=== PATIENT | female | born 1930 | race Caucasian/White ===

== ENCOUNTER 2016-06-06 06:45 | Inpatient (IN) | payer MEDICARE ==
[~2016-06-06] VITALS: Ht 149.9 cm; Wt 96.7 kg
[2016-06-06] VITALS (31 sets, daily range): BP systolic 86–143; BP diastolic 44–113; PULSE 83–118; RESP 12–31; O2SAT 92–100
[~2016-06-06 06:45] MED LIST: AMLO10TA3 PO; ASPI325T32 PO; ATOR40TA69 PO; ESTR42.52 VG; FLUT16SP NS; FURO-128 PO; METO-272 PO; NITR0.4T6 SL; OMEP20TA86 PO; VIT1CAPS8 PO; imdur PO
[2016-06-06 07:06] LABS: BASOPHILS % (AUTO) 0.7 % (0-3); EOSINOPHILS % (AUTO) 5.3 % (0-5); MONOCYTES % (AUTO) 9.8 % (4-12); Mean Corpuscular Hemoglobin 29.7 pg (27.0-35.0); Mean Corpuscular Volume 86.5 fL (81-100); NEUTROPHILS % (AUTO) 44.6 % (40-74); Platelet Count 235 bil/L (150-400)
--- NOTE | 2016-06-06 07:21 | ED.REPORT ---
HPI-Chest Pain 40 and Over Date of Service Jun 06, 2016 ED Provider: Teri Bowman MD Patient is an 85-year-old female with a history of HTN, atrial fibrillation, and GERD who reports to the ED due to chest pain onset 3 hours ago. Patient states that, "chest pain woke me up this morning, it's never been this bad or lasted this long." Patient rated pain at a 10/10 at its most severe and currently at 4/10. She c/o associated SOB and has never had a heart attack before. Patient has had a virus for a few days and c/o associated non- productive cough. She was seen by Urgent Care 3 days ago for a virus where she was put on azithromycin. Patient has had a history of chest pain for the past year and is currently being seen by photogrammetrist Dr. Meraz. Nursing Notes Stated Complaint: CHEST PAIN Chief Complaint: Chest Pain Nursing Notes Reviewed: Yes Allergies: Coded Allergies: levofloxacin (Verified Allergy, Unknown, 09/15/15) CAN NOT REMEMBER RESPONSE Scheduled Amlodipine (Amlodipine) 10 Mg Tablet 10 MG PO DAILY Ascorbic Acid (Vitamin C) 250 Mg Tab.chew 250 MG PO DAILY Aspirin (Aspirin) 325 Mg Tablet 325 MG PO DAILY Atorvastatin Calcium (Atorvastatin Calcium) 40 Mg Tablet 40 MG PO HS at bedtime Estradiol (Estrace) 42.5 Gm Cream.appl 1 APPLIC VG 2 times a week Furosemide (Furosemide) 20 Mg Tab 20 MG PO DAILY Isosorbide MN ER (Isosorbide MN ER) 60 Mg Tab.er.24h 60 MG PO DAILY Metoprolol Tartrate (Metoprolol Tartrate) 50 Mg Tablet 50 MG PO BID Multivitamin (Once Daily) 1 Each Tablet 1 EACH PO DAILY Omeprazole (Omeprazole) 20 Mg Tablet.dr 20 MG PO DAILY Vit C/Vit E/Lutein/Min/[place]-3 (Ocuvite Softgel) 1 Each Capsule 1 EACH PO DAILY Scheduled PRN Albuterol HFA (Proair HFA) 8.5 Gm Hfa.aer.ad 2 PUFFS INHALATION Q4H PRN PRN For Shortness of Breath Fluticasone Propionate (Fluticasone Propionate Nasal) 16 Gm [place].susp 2 SPRAY NS DAILY PRN PRN congestion Nitroglycerin SL (Nitroglycerin SL) 0.4 Mg Tab.subl 0.4 MG SL PRN PRN PRN For Chest Pain General Time Seen by MD: 07:19 Chief Complaint Chest pain Hx Obtained From: Patient Arrived By: Ambulance Sudden in Onset?: Yes Onset Occurred: 1 - 4 hours ago Context of Onset: Sleeping Symptom Duration: Since onset Severity: Current: Pain level 4 out of 10 Severity: Maximum: Pain level 10 out of 10 Recent Healthcare: Recent doctor visit Similar Sx Previous: Yes Past Medical History Past Medical History Notes: Echocardiogram November 2015- ejection fraction at 60-65%, no focal wall motion abnormalities Past Medical History Lumbar spondylosis and spinal stenosis Atrial fibrillation on ASA Hypertension Colon CA GERD History of abnormal Lexiscan sestamibi B that was initially suspicious for prior ND, however subsequent echocardiogram showed normal EF and no wall motion abnormalities, there is no findings of underlying heart disease (abnormal stress test 12/18/2013) Reports: Hyperlipidemia Past Surgical History Back surgery Cholecystectomy Knee arthroscopy Reports: Cataract surgery Family History Noncontributory Smoking History Never Smoker Social History Alcohol Use: Denies alcohol use Drug Use: Denies drug use Other Social History: Lives with children, Local resident Ambulatory Status Independent Review of Systems Constitutional: Denies: Fever Respiratory: Reports: Non-productive cough, Shortness of breath Cardiovascular: Reports: Chest pain Complete sys rev & neg: except as marked. Physical Exam Initial Vital Signs Vital Signs (First) Date Time Temp Pulse Resp B/P Pulse Ox O2 Delivery O2 Flow Rate FiO2 06/06/16 06:54 36.3 112 28 141/65 97 Room Air 06/06/16 07:39 2 Initial VS: Reviewed Head / Eyes: Atraumatic, Normocephalic, PERRL ENT: Mucous membranes moist, Conjunctiva normal, No scleral icterus Neck: Supple, Non-tender, Full range of motion Psychiatric: Mood/affect normal, Behavior normal, Normal thought content General/Constitutional: Awake, Alert, Cooperative Appearance / Presentation: Positive: Pale diaphoretic but speaking in full sentences Respiratory / Chest: Atraumatic, Breath sounds NL, Breath sounds = bilat, No respiratory distress Heart Rate / Rhythm: Positive: Irregular rhythm, Tachycardia Abdomen: Atraumatic, Soft, Non-tender, No guarding, No rebound, BS normoactive Lower Extremity / Pelvis / MS: No edema Interpretation & Diagnostics Lab Results Interpretation Result Diagram: 06/06/16 0645 06/06/16 0645 Test 06/06/16 06:45 06/06/16 08:50 White Blood Count 8.7th/mm3 (3.8-10.1) Red Blood Count 4.38mil/mm3 (3.90-5.20) Hemoglobin 13.0g/dL (12.0-15.6) Hematocrit 37.9% (35.0-46.0) Mean Corpuscular Volume 86.5fL (81-100) Mean Corpuscular Hemoglobin 29.7pg (27.0-35.0) Mean Corpuscular Hemoglobin Concent 34.3% (32.0-37.0) Red Cell Distribution Width 12.7% (12.3-15.4) Platelet Count 235bil/L (150-400) Neutrophils (%) (Auto) 44.6% (40-74) Lymphocytes (%) (Auto) 39.4% (14-46) Monocytes (%) (Auto) 9.8% (4-12) Eosinophils (%) (Auto) 5.3% (0-5) Basophils (%) (Auto) 0.7% (0-3) Sodium Level 141mEq/L (134-144) Potassium Level 3.2mEq/L (3.5-5.2) Chloride Level 101mEq/L (97-108) Carbon Dioxide Level 24mmol/L (18-29) Blood Urea Nitrogen 20mg/dL (8-27) Creatinine 1.15mg/dL (0.57-1.00) Estimat Glomerular Filtration Rate 64mL/min (>59) Glucose Level 150mg/dL (60-99) Calcium Level 9.4mg/dL (8.5-10.1) Magnesium Level 1.8mg/dL (1.6-2.6) Total Bilirubin 0.8mg/dL (0.0-1.2) Aspartate Amino Transf (AST/SGOT) 15U/L (0-50) Alanine Aminotransferase (ALT/SGPT) 12U/L (0-32) Alkaline Phosphatase 82U/L (25-165) Total Protein 6.8g/dL (6.4-8.4) Albumin 3.9g/dL (3.4-5.0) Total Creatine Kinase 41U/L (21-215) Creatine Kinase MB 1.5ng/mL (0.0-5.3) Creatine Kinase MB % % (0.0-5.0) Troponin T < 0.010ug/L (0.0-0.011) Thyroid Stimulating Hormone (TSH) 0.926uIU/mL (0.450-4.500) ECG Interpretation ECG Interpretation: new compared to 09/2015 Time: 07:06 Interpreted by: ED physician Abnormal T wave or ST segment: ST depression - ant-lat (into AVL) Rhythm / Conduction: Atrial fib with RVR ECG Interpretation: similar to presentation no progression of ST depression Time: 07:43 Interpreted by: ED physician X-Ray Chest Interpretation Chest Xray Interpretation: IMPRESSION: 1. Persistent cardiomegaly. 2. Left basilar atelectasis versus aspiration or pneumonia. Dictated by: Jorge A Azul RRA Interpreted: Dheeraj Finch MD on 06/06/2016 at 9:25 Transcribed by: JIM on 06/06/2016 at 9:26 View: Portable Interpretation / Wet Read by: Interpret - Radiologist Re-Eval/Medical Decision Med Decision/Clinical Course Patient presents with acute onset 10 out of 10 left-sided chest pain radiating to the left arm with diaphoresis. Describes this is clearly different from her typical stomach pain and musculoskeletal pain. She notes that she has been coughing a bit recently however has not had fevers and current pain is not pleuritic in nature. EKG shows ST depression in multiple leads. Initial presumption was acute coronary syndrome she was given nitroglycerin and after 2 sprays and nitro paste placed a couple of doses of morphine she is completely pain-free at this point. She is on a heparin drip. He is currently nothing by mouth has not had anything since dinner last night. She does not describe exertional angina or equivalents over the past days. She was recently seen by Dr. Maldonado you has had a stress test about 4 years ago has had recent echocardiogram. He had recommended outpatient cardiac catheterization to help with risk stratification. At this point pain-free hemodynamically stable heart rate has slowed down and has received aspirin metoprolol nitroglycerin and nitroglycerin paste heparin drip. We will admit to hospitalist service. Dr. Rollins and he will consult asked for echocardiogram to be done and this is been ordered. We will anticipate cardiac catheterization later this afternoon or tomorrow. EKG ST depression changes laterally remain they are not worsening and initial troponin, one hour after onset of pain, and repeat troponin 2 hours after that are both negative Consultation #1: Referral / Consult Name: Gera Pritchard MD Consulted With: Cardiology Call Returned at: 10:51 Tubing Machine Tender: Agrees with eval, Agrees with plan Note: Dr. Pritchard recommends an echocardiogram that will help to determine whether or not patient gets a catheter today or tomorrow. Consultation #2: Referral / Consult Name: Camilo Parker MD Consulted With: Hospitalist Call Returned at: 13:10 Tubing Machine Tender: Agrees with eval, Agrees with plan, Accepts admit Note: Case discussed. Dr. Parker accepts admit. Counseled Regarding: Diagnosis, Lab results, Need for admission Discharge & Departure Primary Impression: Acute coronary syndrome Additional Impressions: Chest pain Chest pain type: unspecified Qualified Code: R07.9 - Chest pain, unspecified Hypokalemia Atrial fibrillation with RVR Disposition: ADMITTED TO HOSPITAL Discharge Condition All VS Reviewed: Yes Condition: Stable Referrals: Moncho Mcintosh MD (PCP) Crit Care Except Billable Proc Time Spent: 30-74 minutes Scribe Attestation Portion of this note were transcribed by Belen Mae. I, Dr. Bowman, personally performed the history, physical exam, and medical decision-making: I reviewed and confirmed the accuracy for the information in the transcribed note. Signed by: ilda Wan, 06/06/16 1500 copies to: Gera Pritchard MD, Shawna L MD Jun 06, 2016 07:21 BELEN MAE Jun 06, 2016 07:39
[2016-06-06] MEDS ORDERED: Heparin 5,000 Unit/mL Inj IVPUSH ONE (07:25)
[2016-06-06] MEDS ORDERED: Nitroglycerin 2% 1 Gm Ointment TOPICAL ONE (07:25)
[2016-06-06] MEDS ORDERED: Heparin 25,000 Unit/500 mL 0.45% NS Premix IV ONE (07:25)
[2016-06-06] MEDS ORDERED: Heparin 25K Unit/500mL 0.45 NS 25,000 UNIT in IV Premix 1 EACH IV ONE (07:25)
[2016-06-06] MEDS ORDERED: Nitroglycerin 50,000 mcg/250 mL D5W Premix IV ONE ×2 (07:25)
[2016-06-06 07:44] LABS: Magnesium 1.8 mg/dL (1.6-2.6)
[2016-06-06 07:49] LABS: TROPONIN T < 0.010 ug/L (0.0-0.011)
[2016-06-06] MEDS: MeTOProlol 1 mg/mL 5 mL Inj IVPUSH PRN ×3 (08:05→08:30)
--- NOTE | 2016-06-06 09:26 | DRSVH ---
PROCEDURE: X-RAY CHEST ONE VIEW, PORTABLE ([id number]) INDICATIONS: CHEST PAIN; COUGH; CONGESTION TECHNIQUE: One view of the chest was acquired. COMPARISON: [facility], CR, XR CHEST 2VW, 10/23/2015, 10:52. [facility], CR , CHEST 1VW (PORTABLE), 01/22/2014, 2:29. FINDINGS: Surgical changes and devices: None. Lungs and pleura: No pleural effusions or pneumothorax. Air space opacity involves the left lung ba se, otherwise lungs are clear. Mediastinum: Mediastinal contours appear normal. Heart is mildly enlarged. Bones and chest wall: No suspicious bony lesions. Overlying soft tissues appear unremarkable. IMPRESSION: 1. Mild cardiomegaly. 2. Left basilar atelectasis versus aspiration or pneumonia. Dictated by: Jorge A REHMANA Interpreted: Dheeraj Finch MD on 06/06/2016 at 9:25 Transcribed by: JIM on 06/06/2016 at 9:26 Approved by: Dheeraj Finch M.D. on 06/06/2016 at 9:58
[2016-06-06] MEDS ORDERED: KCl 40 mEq/D5W 500 mL 40 MEQ in IV Premix 1 EACH IV ONE (09:35)
[2016-06-06] MEDS ORDERED: Alum-Mag Hydrox-Simeth 30 mL Suspension PO ONE (10:55)
[2016-06-06] MEDS ORDERED: 0.9% Sodium Chloride 1,000 ML IV ONE (13:37)
[2016-06-06] MEDS ORDERED: MULT-666 PO (14:23)
[2016-06-06] MEDS ORDERED: ALBU8.5H2 INHALATION (14:23)
[2016-06-06] MEDS ORDERED: FUR20 PO (14:23)
[2016-06-06] MEDS ORDERED: ASCO250T7 PO (14:23)
[2016-06-06] MEDS ORDERED: METO50TA3 PO (14:23)
[2016-06-06] MEDS ORDERED: ISOS60TA2 PO (14:23)
[2016-06-06] MEDS ORDERED: Heparin 5,000 Units/500 mL NS Premix IV ONE (14:26)
[2016-06-06] MEDS ORDERED: Heparin 1,000 Units/500 mL NS Premix IV ONE (14:26)
[2016-06-06] MEDS ORDERED: 0.9% Sodium Chloride 1,000 ML IV SCH (14:32)
[2016-06-06] MEDS ORDERED: Polyethylene Glycol (PEG) 17 Gm Powder PO PRN (14:35)
[2016-06-06] MEDS ORDERED: Ondansetron 2 mg/mL 2 mL Inj IVPUSH PRN ×2 (14:35→16:50)
[2016-06-06] MEDS ORDERED: Senna-Docusate 8.6-50 mg Tablet PO PRN (14:35)
[2016-06-06] MEDS ORDERED: Heparin 1,000 Unit/mL 10 mL Inj ONE (14:46)
[2016-06-06] MEDS ORDERED: 0.9% Sodium Chloride 1,000 ML ONE (14:46)
[2016-06-06 15:05] LABS: Creatine Kinase 41 U/L (21-215)
[2016-06-06] MEDS ORDERED: fentaNYL-PF 50 mCg/mL 2 mL Inj ONE (15:06)
--- NOTE | 2016-06-06 15:12 | PCM.CHPCAR ---
Consult Subjective Date of service Jun 06, 2016 Date of admit Jun 06, 2016 at 13:22 Provider Requesting Consult Requesting Provider: Teri Bowman MD Primary Care Physician Primary Care Provider: Moncho Mcintosh MD Chief Complaint Chest pain and shortness of breath History of Present Illness This is a 85-year-old female with supposedly coronary artery disease diagnosed by abnormal myocardial perfusion study back in December 2013. The patient was recently seen on May 17 my clinic because of her chronic symptoms such as belching or burping with sometimes can cause her to have chest pain. She has had this for several years but as of lately she did not make complain of chest discomfort on exertion when she saw me back on May 17. Because of her previous abnormal myocardial perfusion study showed a distal LAD territory finding consistent with prior myocardial infarction, I ordered a repeat Lexiscan sestamibi to reevaluate for any significant ischemia. Apparently the patient's symptoms continued to progress and she apparently caught an upper respiratory infection last week. She developed some shortness of breath as well and went to their care clinic this past Monday was prescribed antibiotics since her symptoms were not resolving. Patient states that she has difficulty breathing at night and has been in a recliner for some time now. Patient apparently had significant chest pain early this morning hours and presented herself to the emergency room. Her chest discomfort described as chest pressure going across her chest with radiation to her back and down her left arm. When she presented to the emergency room she was found to be in atrial for ablation with a rapid ventricular response. She has some ST depressions in multiple leads. The patient was initially given nitroglycerin sublingual which did not relieve her chest discomfort. She was eventually given IV morphine which did eventually mary her symptoms. The patient has been asymptomatic since 9:00 this morning. Her rhythm is still in atrial fibrillation. Her troponins 2 have been negative and a stat echo was ordered which showed no evidence of significant LV wall motion abnormalities which is consistent with her prior echocardiogram. Her LV ejection fraction is normal. She states that her chest discomfort this morning was not associated with belching which normally it has been over the past 3 years. Her chest x-ray during this admission shows possible atelectasis. She denies any recent fevers chills, no elevated white count, or productive sputum. Review of Systems Review of Systems CONSTITUTIONAL: Negative for fever, weight loss or weight gain. HEENT: Eyes: Negative for glaucoma or cataracts. Ears: Positive for loss of hearing. Nose: Negative for nasal congestion. Negative for rhinorrhea or postnasal drip. Mouth: Negative for false teeth. Throat: Negative for masses or hoarseness. Negative for snoring. CARDIOVASCULAR: Positive for chest pain negative for palpitations, near syncope , syncope, but possible orthopnea and PND. RESPIRATORY: Positive for shortness of breath, but negative for hemoptysis, COPD , cough. GASTROINTESTINAL: Negative for nausea, vomiting, diarrhea or heartburn. GENITOURINARY: Negative for dysuria. MUSCULOSKELETAL: Negative for osteoarthritis. SKIN: Negative for rashes. NEUROLOGIC: Negative for headaches, blurry vision, CVA, mental status changes. PSYCHIATRIC: Negative for depression. Negative for daytime sleepiness or insomnia. ENDOCRINE: Negative for diabetes or thyroid abnormalities. HEMATOLOGIC: Negative for anemia or blood dyscrasias. PMH Past Medical History Benign neoplasm of colon Idiopathic peripheral neuropathy Esophageal reflux Hypertension Impaired fasting glucose Osteoporosis Prior abnormal myocardial perfusion study showed apical perfusion defect Arthropathy involving multiple sites Paroxysmal nature for ablation on aspirin Sciatica right side Possible CAD based on myocardial perfusion study Scheduled Amlodipine (Amlodipine) 10 Mg Tablet 10 MG PO DAILY (Reported) Ascorbic Acid (Vitamin C) 250 Mg Tab.chew 250 MG PO DAILY (Reported) Aspirin (Aspirin) 325 Mg Tablet 325 MG PO DAILY (Reported) Atorvastatin Calcium (Atorvastatin Calcium) 40 Mg Tablet 40 MG PO HS (Reported) at bedtime Estradiol (Estrace) 42.5 Gm Cream.appl 1 APPLIC VG 2 times a week (Reported) Furosemide (Furosemide) 20 Mg Tab 20 MG PO DAILY (Reported) Isosorbide MN ER (Isosorbide MN ER) 60 Mg Tab.er.24h 60 MG PO DAILY (Reported) Metoprolol Tartrate (Metoprolol Tartrate) 50 Mg Tablet 50 MG PO BID (Reported) Multivitamin (Once Daily) 1 Each Tablet 1 EACH PO DAILY (Reported) Omeprazole (Omeprazole) 20 Mg Tablet.dr 20 MG PO DAILY (Reported) Vit C/Vit E/Lutein/Min/[place]-3 (Ocuvite Softgel) 1 Each Capsule 1 EACH PO DAILY (Reported) Scheduled PRN Albuterol HFA (Proair HFA) 8.5 Gm Hfa.aer.ad 2 PUFFS INHALATION Q4H PRN PRN For Shortness of Breath (Reported) Fluticasone Propionate (Fluticasone Propionate Nasal) 16 Gm [place].susp 2 SPRAY NS DAILY PRN PRN congestion (Reported) Nitroglycerin SL (Nitroglycerin SL) 0.4 Mg Tab.subl 0.4 MG SL PRN PRN PRN For Chest Pain (Reported) Discontinued Medications ([imdur]) 60 MG PO DAILY (Reported) Furosemide (Lasix) 40 Mg Tablet 40 MG PO DAILY Metoprolol Succinate ER (Metoprolol Succinate ER) 50 Mg Tab.er.24h 80 MG PO BID (Reported) Current Inpatient Medications Current Medications Nitroglycerin 0.4 mg Q5MIN PRN SL Last administered on 06/06/16 09:20; Admin Dose 0.4 MG; Start 06/06/16 at 07:25; Stop 06/06/16 at 09:20; Status DC Metoprolol Tartrate 5 mg Q5MIN PRN IVPUSH Last administered on 06/06/16 08:30 ; Admin Dose 5 MG; Start 06/06/16 at 07:25; Stop 06/06/16 at 08:30; Status DC Morphine Sulfate UP TO 10 mg IV in a 4 h... Q15MIN PRN IVPUSH Last administered on 06/06/16 08:35; Admin Dose 2 MG; Start 06/06/16 at 07:25; Stop 06/07/16 at 07:26 Lorazepam 1 mg ONCE PRN IVPUSH; Start 06/06/16 at 13:40; Stop 06/07/16 at 13:41 Nitroglycerin 0.4 mg PRN PRN SL; Start 06/06/16 at 13:40 Sodium Chloride 10 ml THI IVFLUSH; Start 06/06/16 at 16:30 Sodium Chloride 10 ml 10 ml THI IVFLUSH; Start 06/06/16 at 16:30 Sodium Chloride 1,000 ml @ 80 mls/hr [id number] IV; Start 06/06/16 at 14:32 Aspirin 81 mg DAILY PO; Start 06/07/16 at 08:30 Al Hydrox/Mg Hydrox/Simethicone 30 ml Q6 PRN PO; Start 06/06/16 at 14:35 Ondansetron HCl 4-8 mg prn nausea Q4 PRN IVPUSH; Start 06/06/16 at 14:35 Senna 1 tablet BID PRN PO; Start 06/06/16 at 14:35 Polyethylene Glycol 17 gm DAILY PRN PO; Start 06/06/16 at 14:35 Acetaminophen 325 mg Q6 PRN PO; Start 06/06/16 at 14:35 Nitroglycerin 0.4 mg Q5MIN PRN SL; Start 06/06/16 at 14:35 Morphine Sulfate 1-5 mg prn pain not relie... Q5M PRN IVPUSH; Start 06/06/16 at 14:35 Allergies: Coded Allergies: levofloxacin (Verified Allergy, Unknown, 09/15/15) CAN NOT REMEMBER RESPONSE Family History Family History Father had coronary disease as well as diabetes. Social History Hx Alcohol Use: NoHx Substance Use: NoHx Tobacco Use: No Smoking Status: Never Smoker Exam Vital Signs Vital Sign - Last Date Time Temp Pulse Resp B/P Pulse Ox O2 Delivery O2 Flow Rate FiO2 06/06/16 14:40 85 20 120/52 98 Nasal Cannula 4 06/06/16 13:44 36.3 Objective GENERAL: This is a well-nourished, well-developed patient, in no apparent distress. HEAD: Atraumatic. Normocephalic. No temporal or scalp tenderness. EYES: Pupils equal round and reactive. Extraocular motions intact. No scleral icterus. No injection or drainage. ENT: Nose without bleeding, purulent drainage or septal hematoma. Throat without erythema, tonsillar hypertrophy or exudate. Uvula midline. Airway patent. NECK: Trachea midline. JVD cannot be examined due nuchal obesity. Supple, nontender, no meningeal signs. CARDIOVASCULAR: Irregular rate and rhythm without murmurs, gallops, or rubs. RESPIRATORY: Clear to auscultation. Breath sounds equal bilaterally. Mild wheezes during expiratory phase but no rales, or rhonchi. GASTROINTESTINAL: Abdomen soft, non-tender, nondistended. No hepato-splenomegaly , or palpable masses. No guarding. EXTREMITIES: No clubbing, cyanosis, or edema. No joint tenderness, effusion, or edema noted. No calf tenderness. Negative Homans sign bilaterally. BACK: Nontender without deformity or crepitance. No flank tenderness. Lab and Diagnostics Result Diagram: 06/06/1645 06/06/16 0645 Assessment & Plan Problems: (1) Unstable angina Plan: Patient has chest pain that is not clear-cut classic for angina but certainly has multiple aspects that are quite concerning for unstable angina. She does have some ST depressions in the setting of A. fib better RVR that is not terribly fast so demand ischemia is not high on the list of differential diagnosis. Plus she is chest pain free after nitro and IV morphine and she still has afib with RVR. She also has a very small pericardial effusion but she does not give me any sense that she is currently experiencing acute pericarditis. Patient is already had a prior abnormal myocardial perfusion study in 2013 showed apical perfusion defect. We discussed about her various options of proceeding with diagnostic procedures. We discussed at length about the pros and cons of Lexiscan sestamibi versus a cardiac catheterization. We also discussed about potential adverse complications from both of the studies. At this time she would like to proceed with a coronary angiogram with plus or minus PCI. I will arrange for the cardiac catheterization in the next hour. Once we have delineated her coronary anatomy that we will proceed with further recommendations. Status: Acute ICD Code: I20.0 (2) Atrial fibrillation with RVR Plan: Will titrate her medications for better rate control if she continues sustained atrial fibrillation. She has refused to go on warfarin in the past. Possibly with other options such as Xarelto or Eliquis she might consider these medications. I would discuss with her about these other options after her cardiac catheterization. Status: Acute ICD Code: I48.91 (3) Hypokalemia Plan: She has been replenished with intravenous potassium 40 mEq in the emergency room. Repeat potassium level tomorrow morning. Status: Acute ICD Code: E87.6 (4) Gastroesophageal reflux disease Plan: In the past her chest pain is always associated with increased belching but this most recent event she did not express any belching but is per chest pressure going across her chest with radiation to her back and left arm. Base on her previous abnormal myocardial previous study I suspect this could be more cardiac than gastrointestinal. I think it would be prudent to exclude any evidence of significant coronary disease. Status: Acute ICD Code: K21.9 Cardiology Plan: Catherization, Lipid assessment & treatment Pain Evaluation: Adequate Pain Control Time spent 80 minutes Gera Pritchard MD Jun 06, 2016 15:12
--- NOTE | 2016-06-06 15:24 | DRSVH ---
[facility] [address] [place] [address] Echocardiogram Report Name: MANNY GARRETT MStudy Date : 06/06/2016 Height: 59 in Hospital Exam Location: [facility] Weight: 205 lb Gender: Female BSA: 1.9 m2 : 1930 Age: 85 yrs BP: 104/50 mmHg Reason For Study: EVALUATE EF AND WALL MOTION Ordering Physician: HOSPITALIST [facility] Performed By: Niels Lynne Referring Physician: Amaya NAQVI Interpretation Summary Left ventricular wall thickness is mildly increased. The ejection fraction is estimated to be 60-65%. There are no focal wall motion abnormalities. The right ventricle grossly appears normal in size with probable normal systolic function. The right ventricular systolic pressure is estimated at 21 mmHg assuming a right atrial pressure of 3 mm Hg. The left atrium is moderately dilated. The right atrium is mildly dilated. The ascending aorta is normal in size. There is a trivial pericardial effusion noted. Procedure: A two-dimensional transthoracic echocardiogram with color flow and Doppler was performed in limited views only. The study quality was technically adequate. Comparison is made with the echocardiogram of 11/17/15. A contrast injection of Definity was performed to improve assessment of LV function. The patient was in atrial fibrillation with rapid ventricular response during the exam with a heart rate exceeding 100 bpm. The patient had a heart rate of 83-117 beats per minute. Left Ventricle: Left ventricular wall thickness is mildly increased. The left ventricle is normal in size. The ejection fraction is estimated to be 60 -65%. There are no focal wall motion abnormalities. Right Ventricle: The right ventricle grossly appears normal in size with probable normal systolic function. Atria: The left atrium is moderately dilated. The right atrium is mildly dilated. The interatrial septum bows toward right atrium consistent with elevated left atrial pressure. The interatrial septum is intact with no evidence for an atrial septal defect. Mitral Valve: The mitral valve is normal. There is trace mitral regurgitation. Aortic Valve: The aortic valve is trileaflet. The aortic valve opens well. No aortic regurgitation is present. Tricuspid Valve: The tricuspid valve is normal. There is trace tricuspid regurgitation. The right ventricular systolic pressure is estimated at 21 mmHg assuming a right atrial pressure of 3 mm Hg. Great Vessels: The ascending aorta is normal in size. The IVC is of normal diameter and collapses greater than 50% with a sniff. This suggests a low right atrial pressure of 3 mm Hg. Pericardium/ Pleura There is a trivial pericardial effusion noted. There is no pleural effusion. MMode/2D Measurements & Calculations LVIDd: 4.7 cm RA long axis asc Aorta LVIDs: 3.4 cm LA A2 area: 26.3 cm Diam: 3.2 cm FS: 28.7 % LA A4 area: 28.9 cm RA area IVSd: 1.3 cm LA length (vol): 7.2 cm LVPWd: 1.4 cm LA vol: 90.1 ml : 21.4 cm LA vol index RA vol: 65.5 ml RA : 35.2 mm2 IVC diam: 1.8 cm LV cruz. diameter/BSA LV sys. diameter/BSA (cm/m^2): 2.5 (cm/m^2): 1.8 Doppler Measurements & Calculations Ao V2 max MV E max paresh MV E/A: 996.3 TR max paresh : 140.0 cm/sec : 109.6 cm/sec Med Peak E' Paresh : 214.1 cm/sec Ao max PG MV A max paresh TR max PG : 7.9 mmHg : 0.11 cm/sec E/E' med: 17.9 : 18.3 mmHg Ao mean PG : 4.7 mmHg MV dec time Ao V2 mean : 0.12 sec : 104.9 cm/sec Ao V2 VTI: 27.5 cm Reading Physician:RAFAEL
[2016-06-06] MEDS ORDERED: Atropine 1 mg/10 mL (Code) Syringe ONE (15:35)
[2016-06-06] MEDS: Sodium Chloride LOK Flush 10 mL Syringe IVFLUSH SCH ×2 (16:30)
[2016-06-06] MEDS ORDERED: Atropine 1 mg/10 mL (Code) Syringe IVPUSH PRN (16:50)
[2016-06-06] MEDS ORDERED: HYDROcodone-APAP 5-325 mg Tablet PO PRN (16:50)
[2016-06-06] MEDS ORDERED: 0.9% Sodium Chloride 250 ML IV PRN (16:50)
[2016-06-06] MEDS ORDERED: 0.9% Sodium Chloride 1,000 ML IV PRN (16:50)
[2016-06-06] MEDS ORDERED: Fluticasone 0.05% 15 Spray/2 Gm 16 Gm Nasal Spray NASAL PRN (16:55)
--- NOTE | 2016-06-06 17:25 | NUR ---
Received Received from cath lab manager about 1615. VSS. Denies pain. LS with expiratory wheezes t/o but denies SOB. SPO2 low to mid 90's when asleep, high 90's awake. Tele afib with PVC's. Admit continued. See EMR for further info and assessment. IVF infusing per protocol. Right groin without bleeding or hematoma. Groin precautions reviewed and compliant. Monitor per orders.
--- NOTE | 2016-06-06 17:31 | PCM.CVCATH ---
Cardiac Cath Report Date of Service Jun 06, 2016 Primary Indication This is a 85-year-old female with history of presumably coronary artery disease. Patient had a previous myocardial perfusion study that showed fixed defect consistent with prior myocardial infarction. She has been treated with medical therapy. She comes in this morning with severe onset of chest discomfort was quite typical for angina. She was previously scheduled for an outpatient Lexiscan sestamibi but this was canceled because of a recent upper respiratory infection. After discussing about the risk and benefits of coronary artery gram versus Lexiscan sestamibi, and she has decided to proceed with coronary come to have more definite plan for further management. Procedure 1. Left heart catheterization 2. Selective coronary angiogram 3. Right femoral angiogram Vascular Access Right common femoral artery Procedure Details The patient was brought into the catheterization laboratory. The patient was nothing by mouth since midnight. The patient was prepped and sterilized in the appropriate fashion. Local anesthetic was given to the right groin region with lidocaine 1%. A percutaneous stick with a micropuncture kit was performed. A 5 Lebanese sheath was inserted into the right femoral artery. A 5 Lebanese FL 4 diagnostic catheter was advanced and engaged into the left main. The left coronary angiography was performed in multiple views. The catheter was exchanged over the wire for a 5 Lebanese FR4 diagnostic catheter. The catheter was engaged in the right coronary ostium and the right coronary angiography was performed in multiple views. The catheter was removed over the wire and exchanged for 5 Lebanese angle pigtail catheter. LV hemodynamics were recorded. LV pullback was performed. All catheters were removed. The right femoral angiogram was performed to evaluate for closure device. Hemostasis was obtained with manual compression. The patient was transferred back to special observation unit for post procedural monitoring. There were no immediate complications. Total fluoroscopy time: 3.6 minutes Total fluoroscopy dosage: 1084 mGy Estimated blood loss: 5 mL Total contrast: 95 mL Medications/Fluoro Time See procedure log Findings 1. Hemodynamics: The left ventricular systolic pressure was estimated at 143 mmHg and the left ventricular end-diastolic pressure was estimated at 16 mmHg. There is no significant gradient during pullback. The aortic pressure was 154/61 mmHg with a mean arterial pressure 111 mmHg. 2. Selective coronary angiography: A. Left main: There artery is short and has no evidence of significant disease. It bifurcates into the left anterior and left circumflex arteries. B. Left anterior descending artery: There is moderate calcification within in the proximal portion. In the very proximal LAD there is a 95% long stenosis and then almost immediately there is another 80-90% stenosis that is short. In the mid LAD there is a 50-60% short stenosis. There are 2 major diagonal arteries which are small in size and are significantly disease. The LAD wraps around the apex. C. Left circumflex artery: Again, there is calcification within the proximal portion. There is no critical disease. There is large obtuse marginal artery that gives off multiple branches. At the first branch and involving the proximal portion of the inferior branch there is a very short 50% stenosis. In the superior branch is a very distal artery with a 99% stenosis at the ostium. D. Right coronary artery: This is the dominant artery. There is no critical disease. The posterior descending artery has no significant disease. There appears be some small collaterals feeding the left anterior descending artery. 3. Right femoral angiogram: There is no evidence of significant disease. Summary 1. Critical proximal LAD stenosis with very faint collaterals from the right coronary artery. 2. Significant disease within the left circumflex artery but only involving the very distal and small vessel. 3. Elsewhere there is diffuse coronary disease but nonobstructive. 4. Mildly elevated left ventricular end-diastolic pressures. Recommendations Currently the patient is stable then we will try to obtain better rate control. Given the severity of her coronary disease it is not a surprise that she has developed some degree of chest pain even with only mild rapid ventricular response. Meanwhile I will like to discuss the case with our interventionalist and cardiothoracic surgeon to see which is the best route of intervening on her proximal LAD. Patient is 85 years old and lives somewhat of a sedentary lifestyle which would put her at increased risk of cardiac complications after surgery. Gera Pritchard MD Jun 06, 2016 17:31
--- NOTE | 2016-06-06 18:21 | PCM.HPMED ---
Subjective Date of Service Jun 06, 2016 Primary Provider: Admitting Physician: Camilo Parker MD Primary Care Physician: Moncho Mcintosh MD Attending Physician: Camilo Parker MD Admit Status: From the Emergency Department, Full Admit, [facility] Telemetry Chief Complaint: Chest pain and shortness of breath History of Present Illness: This is a pleasant 85-year-old female who presented with chest pain to the ER today. She has a history of abnormal Lexiscan several years ago. She has no clear-cut known history of CAD. She apparently was scheduled for a repeat stress test later in the week. She has history of atrial fibrillation and apparently has been ill for the last week with rhinorrhea and sore throat and cough. She is seen in urgent care several days ago and given azithromycin Max for possible URI. No fevers or chills. She notes she has been having more chest pain with the cough. She also has severe GERD with long history of dyspepsia. This has been worse lately. She notes that she takes an antihistamine stomach medication once a day. She has tried twice in the past but this has not made a difference. She also notes last several weeks having exertional chest pressure which she has been relieved with rest. No orthopnea or pedal edema. This morning she awoke with chest pain. The pain is described as severe. She takes several nitroglycerin and then came to the ER. There she was found to have a normal echocardiogram and ECG. She was taken directly to the coronary catheterization lab. She was found to have significant stenosis of the LAD. She is on a heparin drip. Review of Systems: She denies headache. She has had some rhinorrhea sore throat and cough. She has also had weakness in her lungs. Is given antibiotics several days ago for bronchitis. She did have her flu vaccine this year. She has had intermittent diarrhea but no blood per rectum. No urinary symptoms. Also reviewed and otherwise negative except as noted in history of present illness. Allergies Coded Allergies: levofloxacin (Verified Allergy, Unknown, 09/15/15) CAN NOT REMEMBER RESPONSE Home Medications Amlodipine (Amlodipine) 10 Mg Tablet 10 MG PO DAILY Ascorbic Acid (Vitamin C) 250 Mg Tab.chew 250 MG PO DAILY Aspirin (Aspirin) 325 Mg Tablet 325 MG PO DAILY Atorvastatin Calcium (Atorvastatin Calcium) 40 Mg Tablet 40 MG PO HS at bedtime Estradiol (Estrace) 42.5 Gm Cream.appl 1 APPLIC VG 2 times a week Furosemide (Furosemide) 20 Mg Tab 20 MG PO DAILY Isosorbide MN ER (Isosorbide MN ER) 60 Mg Tab.er.24h 60 MG PO DAILY Metoprolol Tartrate (Metoprolol Tartrate) 50 Mg Tablet 50 MG PO BID Multivitamin (Once Daily) 1 Each Tablet 1 EACH PO DAILY Omeprazole (Omeprazole) 20 Mg Tablet.dr 20 MG PO DAILY Vit C/Vit E/Lutein/Min/[place]-3 (Ocuvite Softgel) 1 Each Capsule 1 EACH PO DAILY Scheduled PRN Albuterol HFA (Proair HFA) 8.5 Gm Hfa.aer.ad 2 PUFFS INHALATION Q4H PRN PRN For Shortness of Breath Fluticasone Propionate (Fluticasone Propionate Nasal) 16 Gm [place].susp 2 SPRAY NS DAILY PRN PRN congestion Nitroglycerin SL (Nitroglycerin SL) 0.4 Mg Tab.subl 0.4 MG SL PRN PRN PRN For Chest Pain PMH 1. Abnormal stress test in the past 2. Spinal stenosis 3. Atrial fibrillation, paroxysmal. Chronic aspirin. 4. Hypertension 5. GERD. Surgical History 1. Cholecystectomy 2. Back surgery. 3. Knee arthroscopy Family History Positive for CAD Social History Hx Alcohol Use: No Hx Substance Use: No Hx Tobacco Use: No Smoking Status: Never Smoker Living Arrangement: with Family Exam Vital Signs Vital Sign - Last Date Time Temp Pulse Resp B/P Pulse Ox O2 Delivery O2 Flow Rate FiO2 06/06/16 18:00 99 20 142/87 94 Nasal Cannula 2.00 06/06/16 13:44 36.3 Exam Alert oriented 3 no acute distress Normal skull Normal nose and ears. Anicteric sclera, symmetric pupils Oropharynx unremarkable, normal mucosa, no droop. Neck is supple. Normal thyroid, no adenopathy. Lungs are with expiratory wheezing but no focal rales, normal effort right Heart is irregular without murmur gallop or rub Abdomen soft nontender Extremities are free of edema good pedal pulses Right groin is unremarkable no hematoma. Prior skin is free of rash, lesions or petechiae. Joints Are Deformed. Muscle Strength Is Normal. Affect Is Also Normal. Lab and Diagnostics Result Diagram: 06/06/16 0645 06/06/16 0645 X-Rays, CTs and MRIs Chest x-ray reveals left base atelectasis versus and infiltrate 12-lead ECG Atrial fibrillation with poor R-wave progression but no ST segment changes. Assessment & Plan 1. Crescendo angina. POA. Coronary angiography today reveals an LAD lesion which is critical analysis. The plan is to continue beta-blockade, and a heparin drip as well as antiplatelet therapy. The case and reviewed with financial aid manager see what they recommend. 2. May require pneumonia. POA. The patient is currently on a course of azithromycin and we will continue this. There is an infiltrate noted in x-ray. No fever, leukocytosis or hypoxia. 3. Atrial fibrillation, chronic. POA. Will continue usual medications and rate limitation with beta-blockade. 4. GERD., POA. This is chronic. 5. Reactive airways, POA. We will use bronchodilators scheduled over the next 24 hours. Patient was admitted inpatient status, anticipated Medrano is over 2 nights. She is full resuscitation. Pain Evaluation: Adequate Pain Control Resuscitation Status: CPR: Attempt Resuscitation Time spent 40 minutes Camilo Parker MD Jun 06, 2016 18:14
[2016-06-06] MEDS ORDERED: Albuterol 1.25 mg/3 mL Inhalation Solution NEB PRN (18:25)
--- NOTE | 2016-06-06 18:53 | NUR ---
Transfer Groin and VS stable. Report called to Quyen Page RN at 1800. Taking po fluids well. Dinner ordered to be sent to room. Hospitalist in to see pt. Pt. voided x1 per bedpan and was incontinent x1. Transported to 2012 at 1830 via bed by staff in no distress with hearing aids. Family has other belongings and notified of room prior to their leaving for dinner and stated they would be back later.
[2016-06-06] MEDS: Alum-Mag Hydrox-Simeth 30 mL Suspension PO PRN (19:45)
[2016-06-06] MEDS ORDERED: Albuterol 2.5 mg/3 mL Inhalation Solution NEB PRN (20:00)
[2016-06-06] MEDS ORDERED: Heparin Protocol Boluses IVPUSH PRN (21:30)
[2016-06-06] MEDS ORDERED: Heparin 25K Unit/500mL 0.45 NS 25,000 UNIT in IV Premix 1 EACH IV SCH (21:30)
[2016-06-06 21:38] LABS: Creatine Kinase 43 U/L (21-215)
[2016-06-06 21:53] LABS: APPEARANCE,URINE CLEAR (CLEAR,HAZY); COLOR,URINE YELLOW (YELLOW); OCCULT BLOOD,URINE NEGATIVE (NEGATIVE); PH,URINE 6.5 (5.0-8.0); UROBILINOGEN,URINE NORMAL (NORMAL)
[2016-06-07] VITALS (10 sets, daily range): BP systolic 112–137; BP diastolic 46–75; PULSE 53–97; RESP 17–25; O2SAT 95–98
[2016-06-07] MEDS: Sodium Chloride LOK Flush 10 mL Syringe IVFLUSH SCH ×6 (03:05→16:24)
[2016-06-07 03:25] LABS: BASOPHILS % (AUTO) 0.2 % (0-3); EOSINOPHILS % (AUTO) 5.7 % (0-5); Mean Corpuscular Hemoglobin 29.3 pg (27.0-35.0); Mean Corpuscular Volume 87.3 fL (81-100); NEUTROPHILS % (AUTO) 62.7 % (40-74); Platelet Count 248 bil/L (150-400)
--- NOTE | 2016-06-07 05:34 | NUR ---
P: Afib w/ PVCs I: lopressor 50mg every 6 hrs E: Tele A fib, 90s. BP stable. Denies pain, dyspnea, N/V. 2L NC, sats mid 90s. R groin stable. Urine incontinence and SBA to BSC. Yellow, cloudy w/ odor. Cardiac heparin drip restarted 2129.
[2016-06-07] MEDS ORDERED: Pantoprazole 20 mg ER24 Tablet PO SCH (08:30)
[2016-06-07] MEDS ORDERED: Amiodarone 150 mg/100 mL D5W 150 MG in IV Premix 1 EACH IV ONE (09:00)
[2016-06-07] MEDS ORDERED: Amiodarone 360 mg/200 mL D5W 360 MG, Filter, Taxol 14256-28 1 EACH in IV Premix 1 EACH IV SCH (09:00)
--- NOTE | 2016-06-07 09:41 | PCM.PNCARD ---
Subjective Date of service Jun 07, 2016 Chief Complaint Chest pain and shortness of breath History of Present Illness I performed the coronary angiogram yesterday and you may see the details of that report in the cardiac cathetherization report. But very briefly, she has a critical stenosis involving the very proximal LAD. LVEDP is borderline elevated. I have discussed the case with our cardiothoracic surgeon at [facility] and with our interventionalist. I have also discussed the case this morning during our cath conference. She has done well since admission and denies any resting chest pain. However she continues to be in afib but with better rate control. She is back on IV heparin for now. Constitutional: Denies: Chills, Fever ENT: Denies: Ear Pain Eyes: Denies: Blurred Vision Cardiovascular: Reports: Irregular Heart Rate, Rapid Heart Rate, Denies: Chest Pain Respiratory: Denies: Shortness of Breath Gastrointestinal: Denies: Abdominal Pain Musculoskeletal: Denies: Ankle Pain Skin: Denies: Bruising Neurological: Denies: Confusion Endocrine: Reports: Blood Glucose Review Exam Vital Signs Vital Sign - Last Date Time Temp Pulse Resp B/P Pulse Ox O2 Delivery O2 Flow Rate FiO2 06/07/16 08:20 Supplement Oxygen 06/07/16 08:20 36.9 90 21 130/70 96 2.00 Intake and Output 06/06/16 06/06/16 06/07/16 Cumulative From/Thru 15:00 23:00 07:00 06/06/16 06:54 - 06/07/16 05:33 Intake Total 1000 ml 1314 ml 2314 ml Output Total 600 ml 800 ml 1400 ml Balance 400 ml 514 ml 914 ml Intake Oral 850 ml 850 ml IV Total 1000 ml 464 ml 1464 ml Output Urine Total 600 ml 800 ml 1400 ml # Voids 1 1 2 General: Pleasant Cooperative Moderately obese Skin: Warm & dry to touch Head: Normocephalic Eye: EOMS intact Neck: Nuchal obesity:JVP assess difficult Chest: Expiratory wheezes Cardiac: Normal non-displaced apical impulse Irregularly irregular rhythm No murmurs Pulses: Pulses full/equal all extremities Abdomen: Obese Extremities: Warm w/o deformities,erythema noted Neurological: Alert & oriented Psychological: Affect & interaction appropriate Lab and Diagnostics Result Diagram: 06/07/1631406/07/16314 Assessment & Plan Problems: (1) Unstable angina Plan: After reviewing her films and discussing with my colleagues during our cath conference, we all agree that she will not be an ideal candidate for surgical revascularization due to her advance age and sedentary lifestyle and borderline DM. The other option that was entertained was LAD stenting but after reviewing the films with our interventionalist, it was concluded that there is not much for landing a stent since the stenosis is very proximal. Based on her critical LAD stenosis and the fact she came in with mild afib with RVR is most likely the reason why she suddenly developed angina yesterday morning. She has been for the most part in sinus rhythm with some degree of bradycardia which is probably the reason why she has not had any resting angina. Prior to this event, she would have for the most part exertional angina. I have discussed the more conservative management with Mrs. Hernandez and she agree with the plan. I have made some changes with her medications to see if we can get her feeling better. I have stopped metoprolol and started her on IV amiodarone for both rate control and for anti-anginal properties. I have also added Imdur ER 60 mg po qam. I will also add clopidogrel 75 mg once a day on top of her daily aspirin 81 mg once a day. We will closely monitor her progress over the next two days and see how she does. If after maximizing her anti-anginal therapy and she continues to have angina then we can reconsider PCI to her very proximal LAD. At least for now, we can see how she does on daily dual anti-platelet therapy without committing to a drug eluting stent. Status: Resolved ICD Code: I20.0 (2) LAD stenosis Plan: I don't believe this is a plaque rupture causing acute coronary syndrome. She has most likely developed this lesion for many years. It appears that it is only ischemic when she has increased demand such as walking or afib with mild RVR. We will try to treat her symptoms medically and see we can improve her quality of life at this stage. The only time we should consider mechanical intervention is if she is having persistent angina despite maximizing her medical therapy. Another anti-anginal medication we can consider is Ranexa but I would try to maximize her other traditional anti- anginal meds first before committing to a more expensive medication. Status: Chronic ICD Code: I25.10 (3) Atrial fibrillation with RVR Plan: I have switched her metoprolol to IV amiodarone to obtain better rate control and possibly rhythm control. I do not want to have both metoprolol and IV amiodarone due to potential increase for asystole and/or pause. For now, we will put her on dual anti-antiplatelet therapy instead of putting her on aspirin and warfarin. She is at increased risk for cardioembolic stroke but I think her symptomatic LAD stenosis needs to be treated first, but the dual anti- platelet therapy should provide some protection for cardioembolic stroke. Status: Acute ICD Code: I48.91 (4) Gastroesophageal reflux disease Qualifiers: Esophagitis presence: without esophagitis Qualified Code: K21.9 - Gastro- esophageal reflux disease without esophagitis Status: Chronic ICD Code: K21.9 Cardiology Plan: Catherization, Lipid assessment & treatment Pain Evaluation: Adequate Pain Control VTE Mechanical Devices: Intermittant Pneumatic CD Resuscitation Status: CPR: Attempt Resuscitation Time spent Critical time 45 minutes Gera Pritchard MD Jun 07, 2016 09:41
[2016-06-07] MEDS ORDERED: IV Premix 1 EACH IV ONE ×2 (10:55→18:09)
[2016-06-07] MEDS ORDERED: Amiodarone 360 mg/200 mL D5W Premix IV ONE ×2 (10:55→18:09)
[2016-06-07] MEDS ORDERED: Levalbuterol 0.63 mg/3 mL Inhalation Solution NEB SCH (11:00)
[2016-06-07] MEDS: Isosorbide Mononitrate 60 mg ER24 Tablet PO SCH (11:23)
--- NOTE | 2016-06-07 13:53 | PCM.PNMED ---
Subjective Date of Service Jun 07, 2016 Subjective No chest pain overnight. Minimal dyspepsia. She still has a fair amount of dyspnea, dry cough and wheezing. No nausea. No diarrhea. Exam Vital Signs Vital Sign - Last Date Time Temp Pulse Resp B/P Pulse Ox O2 Delivery O2 Flow Rate FiO2 06/07/16 12:01 36.9 71 24 113/52 96 Nasal Cannula 2.00 Intake and Output 06/06/16 06/06/16 06/07/16 Cumulative From/Thru 15:00 23:00 07:00 06/06/16 06:54 - 06/07/16 05:33 Intake Total 1000 ml 1314 ml 2314 ml Output Total 600 ml 800 ml 1400 ml Balance 400 ml 514 ml 914 ml Intake Oral 850 ml 850 ml IV Total 1000 ml 464 ml 1464 ml Output Urine Total 600 ml 800 ml 1400 ml # Voids 1 1 2 Exam Alert oriented 3, fluent speech. Anicteric sclerae Neck supple Lungs right elbow for expiratory wheezing and prolonged expiratory phase. Heart is regular without murmur gallop or rub Abdomen is soft nondistended Extremities are free of edema good pedal pulses. IVs and Medications Medications Reviewed: Medications were reviewed in detail Lab and Diagnostics Result Diagram: 06/07/1631406/07/16314 X-Rays, CTs and MRIs Chest x-ray reveals left base atelectasis versus and infiltrate 12-lead ECG Atrial fibrillation with poor R-wave progression but no ST segment changes. Assessment & Plan 1. Crescendo angina. POA. Coronary angiography today reveals an LAD lesion which is critical analysis. Discussed case with physicist light and optics today. Given the proximal location of the lesion the plan is to maximize medical therapy with addition of dual antiplatelet agents, beta-blockade as well as long acting nitrates. 2. Community acquired pneumonia. POA. The patient is currently on a course of azithromycin and we will continue this. There is an infiltrate noted in x- ray. No fever, leukocytosis or hypoxia. No change to Bactrim plan. 3. Atrial fibrillation, chronic. POA. Will continue usual medications and rate limitation with beta-blockade. No Coumadin for now, dual antiplatelet agents only. 4. GERD., POA. This is chronic. We will increase her Pepcid to twice a day. Tums when necessary. 5. Reactive airways, POA. We will use bronchodilators scheduled over the next 24 hours. Patient was admitted inpatient status, anticipated Medrano is over 2 nights. She is full resuscitation. Pain Evaluation: Adequate Pain Control VTE Mechanical Devices: Intermittant Pneumatic CD Resuscitation Status: CPR: Attempt Resuscitation Time spent 25 minutes, met with Camilo Sheets MD Jun 07, 2016 13:53
[2016-06-07] MEDS ORDERED: LEVALBUTEROL 45 MCG INHALATION SCH (14:30)
--- NOTE | 2016-06-07 14:41 | NUR ---
Amiodarone Pt Amiodarone bolus of 150mg administered at 1130 over 15 minutes. Amiodarone drip started on loading dose at 33.3 ml/hr at 1146. Rate to be decreased at 1746. Addendum: 06/07/16 at 1847 by ARJUN LOPZE RN Pt tolerating drip. HR Afib 60-80.
[2016-06-07] MEDS: Levalbuterol 1.25 mg/0.5mL Inhalation Solution NEB SCH (16:00)
[2016-06-07] MEDS: Pantoprazole 20 mg ER24 Tablet PO SCH (21:40)
[2016-06-08] VITALS (14 sets, daily range): BP systolic 108–150; BP diastolic 42–77; PULSE 54–90; RESP 12–20; O2SAT 95–98
[2016-06-08] MEDS: Sodium Chloride LOK Flush 10 mL Syringe IVFLUSH SCH ×6 (00:30→16:30)
[2016-06-08] MEDS ORDERED: Amiodarone 360 mg/200 mL D5W Premix IV ONE (05:30)
[2016-06-08] MEDS ORDERED: IV Premix 1 EACH IV ONE (05:30)
--- NOTE | 2016-06-08 06:10 | NUR ---
Amiodarone / Heparin /Puncture site Amiodarone ruunning @ 16.7, Heparin running @ 1125 Ptt Heparin 84.7 next: Ptt heparin 06/09/16 0500 A&O x3 2 L O2 per NC , Rt groin puncture site CDI No C/O pain , no drainage. intermittent dry cough, lungs crackly throughout . Addendum: 06/08/16 at 0631 by NGOZI CORRAL RN Catalina [id number]
[2016-06-08] MEDS: Pantoprazole 20 mg ER24 Tablet PO SCH ×2 (08:27→20:04)
[2016-06-08] MEDS: Isosorbide Mononitrate 60 mg ER24 Tablet PO SCH (08:28)
[2016-06-08] MEDS: Levalbuterol 1.25 mg/0.5mL Inhalation Solution NEB SCH ×4 (08:30→19:31)
--- NOTE | 2016-06-08 10:13 | PCM.PNCARD ---
Subjective Date of service Jun 08, 2016 Chief Complaint Chest pain and shortness of breath History of Present Illness We had a long discussion about her various options yesterday and we have agreed to proceed with aggressive medical therapy w/o coronary intervention. She has done well but continues to cough. She has had a chronic cough but has become worse over the past 1.5 weeks due to upper respiratory infection. She has converted back to SR after starting on IV amiodarone. HR is around 60 bpm and she has not had any chest pain since admission except when she coughs. Constitutional: Denies: Fever ENT: Denies: Ear Pain Eyes: Denies: Blurred Vision Cardiovascular: Reports: Chest Pain, Irregular Heart Rate, Denies: SOB while laying flat Respiratory: Reports: Cough, Denies: Cough with bloody sputum, Shortness of Breath, Wake up Gasping for Breath, Wake up SOB Gastrointestinal: Denies: Abdominal Pain, Nausea, Vomiting Genitourinary: Denies: Hematuria Musculoskeletal: Denies: Back Pain, Neck Pain, Shoulder Pain Skin: Denies: Blisters, Dry or Flakiness Neurological: Denies: Confusion, Drooping Mouth, Vertigo Endocrine: Denies: Blood Glucose Review Exam Vital Signs Vital Sign - Last Date Time Temp Pulse Resp B/P Pulse Ox O2 Delivery O2 Flow Rate FiO2 06/08/16 09:31 58 06/08/16 08:44 20 96 Nasal Cannula 2.00 06/08/16 08:13 37.2 125/56 Intake and Output 06/07/16 06/07/16 06/08/16 Cumulative From/Thru 14:59 22:59 06:59 06/06/16 06:54 - 06/08/16 05:37 Intake Total 1425 ml 624 ml 4363 ml Output Total 1000 ml 300 ml 2700 ml Balance 425 ml 324 ml 1663 ml Intake Oral 840 ml 200 ml 1890 ml IV Total 585 ml 424 ml 2473 ml Output Urine Total 1000 ml 300 ml 2700 ml # Voids 2 # Bowel Movements 0 0 General: Pleasant Cooperative Moderately obese Skin: Warm & dry to touch Head: Normocephalic Chest: Clear auscultation & percussion Cardiac: No murmurs, gallops or rubs Regular rhythm Abdomen: Soft, non-distended, non-tender Obese Extremities: Warm w/o deformities,erythema noted Neurological: Alert & oriented Psychological: Affect & interaction appropriate Lab and Diagnostics Result Diagram: 06/07/1631406/07/16314 Assessment & Plan Problems: (1) Unstable angina Plan: After reviewing her films and discussing with my colleagues during our cath conference, we all agree that she will not be an ideal candidate for surgical revascularization due to her advance age and sedentary lifestyle and borderline DM. The other option that was entertained was LAD stenting but after reviewing the films with our interventionalist, it was concluded that there is not much for landing a stent since the stenosis is very proximal. Based on her critical LAD stenosis and the fact she came in with mild afib with RVR is most likely the reason why she suddenly developed angina yesterday morning. She has been for the most part in sinus rhythm with some degree of bradycardia which is probably the reason why she has not had any resting angina. Prior to this event, she would have for the most part exertional angina. I have discussed the more conservative management with Mrs. Hernandez and she agree with the plan. I have made some changes with her medications to see if we can get her feeling better. I have stopped metoprolol and started her on IV amiodarone for both rate control and for anti-anginal properties. She has converted back to SR so I will go ahead and switch her to oral amiodarone. I have also added Imdur ER 60 mg po qam. I added clopidogrel 75 mg once a day on top of her daily aspirin 81 mg once a day. We will closely monitor her progress over the next 24 hours and see how she does. If after maximizing her anti-anginal therapy and she continues to have angina then we can reconsider PCI to her very proximal LAD. At least for now, we can see how she does on daily dual anti-platelet therapy without committing to a drug eluting stent. Status: Resolved ICD Code: I20.0 (2) LAD stenosis Plan: I don't believe this is a plaque rupture causing acute coronary syndrome. She has most likely developed this lesion for many years. It appears that it is only ischemic when she has increased demand such as walking or afib with mild RVR. We will try to treat her symptoms medically and see we can improve her quality of life at this stage. The only time we should consider mechanical intervention is if she is having persistent angina despite maximizing her medical therapy. Another anti-anginal medication we can consider is Ranexa but I would try to maximize her other traditional anti- anginal meds first before committing to a more expensive medication. Status: Chronic ICD Code: I25.10 (3) Atrial fibrillation with RVR Plan: I have switched her metoprolol to IV amiodarone and she has converted to SR. I will switch it to oral amiodarone. Continue with Plavix and ASA for now. She has refused warfarin in the past. I believe she is at higher risk for KAITLYN than cardioembolic stroke so we have opted to treat her critical CAD with dual antiplatelet therapy rather than ASA and NOAC. Status: Acute ICD Code: I48.91 (4) Gastroesophageal reflux disease Qualifiers: Esophagitis presence: without esophagitis Qualified Code: K21.9 - Gastro- esophageal reflux disease without esophagitis Status: Chronic ICD Code: K21.9 Cardiology Plan: Catherization, Lipid assessment & treatment Pain Evaluation: Adequate Pain Control VTE Mechanical Devices: Intermittant Pneumatic CD Resuscitation Status: CPR: Attempt Resuscitation Discharge Plan: Transfer patient to [facility] and if patient has no CP while walking today then possible discharge tomorrow. She has a daughter that might be able to help her if needed. Time spent 20 minutes Gera Pritchard MD Jun 08, 2016 10:13
--- NOTE | 2016-06-08 11:55 | PCM.PNMED ---
Subjective Date of Service Jun 08, 2016 Subjective She is doing well today. She has converted to normal sinus rhythm rhythm. No palpitations or chest pain. No dyspnea. She has an ongoing cough which is dry and some mild wheezing but this is improved overnight with Xopenex. No diarrhea. Exam Vital Signs Vital Sign - Last Date Time Temp Pulse Resp B/P Pulse Ox O2 Delivery O2 Flow Rate FiO2 06/08/16 09:31 58 06/08/16 08:44 20 96 Nasal Cannula 2.00 06/08/16 08:13 37.2 125/56 Intake and Output 06/07/16 06/07/16 06/08/16 Cumulative From/Thru 15:00 23:00 07:00 06/06/16 06:54 - 06/08/16 05:37 Intake Total 1425 ml 624 ml 4363 ml Output Total 1000 ml 300 ml 2700 ml Balance 425 ml 324 ml 1663 ml Intake Oral 840 ml 200 ml 1890 ml IV Total 585 ml 424 ml 2473 ml Output Urine Total 1000 ml 300 ml 2700 ml # Voids 2 # Bowel Movements 0 0 Exam Alert oriented 3, no distress Anicteric sclerae. Neck supple. Lungs are notable for 2-4 breath sounds and some expiratory wheezing and basilar rhonchi. Heart is regular without murmur. Abdomen is soft nontender. Extremities are free of edema. IVs and Medications Medications Reviewed: Medications were reviewed in detail Lab and Diagnostics Result Diagram: 06/07/1631406/07/16314 X-Rays, CTs and MRIs Chest x-ray reveals left base atelectasis versus and infiltrate 12-lead ECG Atrial fibrillation with poor R-wave progression but no ST segment changes. Assessment & Plan 1. Crescendo angina. POA. Coronary angiography today reveals an LAD lesion which is critical stenosis. The problem is that the stenosis is near the ostium to the point taken in a stenting would be virtually impossible. The alternative is bypass surgery which this seems not a great proposition by cardiology. The current plan is to maximize medical therapy and control atrial fibrillation and rate. She is on dual antiplatelets, anticoagulation will not be pursued at the current time. Continue beta blockade and nitrates. If she does well overnight she will be discharged on June 09. 2. Community acquired pneumonia. POA. The patient is currently on a course of azithromycin and we will continue this. There is an infiltrate noted in x- ray. No fever, leukocytosis or hypoxia. No change to current plan. 3. Atrial fibrillation, chronic. POA. This did convert overnight. She is converted from amiodarone IV every 400 mg by mouth twice a day. No Coumadin for now, dual antiplatelet agents for CAD. 4. GERD., POA. This is chronic. We will increase her Pepcid to twice a day. Tums when necessary. 5. Reactive airways, POA. We will use bronchodilators scheduled over the next 24 hours. This is improved. Anticipate discharge on . Patient was admitted inpatient status, anticipated [place] is over 2 nights. She is full resuscitation. Pain Evaluation: Adequate Pain Control VTE Mechanical Devices: Intermittant Pneumatic CD Resuscitation Status: CPR: Attempt Resuscitation Time spent 25 minutes Camilo Parker MD Jun 08, 2016 11:55
--- NOTE | 2016-06-08 15:35 | NUR ---
Social Work Note: Initial Assessment Data& Assessment: EMR reviewed. SW met with pt at bedside to discuss discharge planning and assess for any unmet needs, SW role explained. Isha Hernandez is a 85 year old female admitted on 06/06/2016 for NSTEMI. Pt has [employer] Medicare and sees Moncho Mcintosh MD for primary care. Pt lives in [place], her son and daughter in law live with her. Pt lives in a one story home with no steps entering the home. Pt denies any DME use or SNF hx. Pt has had [facility] in the past. Pt denies LTC insurance or VA benefits. Pt does have a living will completed, SW requested a copy when possible for her chart. Pt drives at baseline but her son is able to transport her home when medically ready. PT is recommending home health services at this time. Pt provided with list for preferences. Pt prefers to go through [facility] who she has had in the past. SW provided referral to [facility] at [facility] and access provided. Pt denies any discharge needs at this time. SW to continue to follow if any needs arise. Plan: Anticipated discharge home via POV with [facility] PT and RN to follow when medically ready. Pt denies any discharge needs at this time. SW to continue to follow if any needs arise. [facility] Addendum: 06/08/16 at 1546 by ABIGAIL BAIRD Amended: Links added.
[2016-06-08] MEDS ORDERED: Heparin 25K Unit/500mL 0.45 NS 25,000 UNIT in IV Premix 1 EACH IV SCH (17:15)
[2016-06-08] MEDS ORDERED: Heparin 5,000 Unit/mL Inj IVPUSH PRN (17:15)
[2016-06-08] MEDS ORDERED: Heparin 5,000 Unit/mL Inj IVPUSH ONE (17:15)
[2016-06-08] MEDS: Nitroglycerin 50 mg/250 mL D5W 50,000 MCG in IV Premix 1 EACH IV SCH (18:46)
--- NOTE | 2016-06-08 19:08 | NUR ---
Chest Pain Pt experiencing chest pain, pressure not changed with deep breath, pt became shaky and diaphoretic. MD aware. Nitro Tab given SL, EKG performed. Pt has history of esophageal spasm, gas pains, anxiety. 2 mg Morphine given. Pt stated relief with both Nitro tab and morphine. Pt continues to complain of chest pressure, somewhat relieved by sitting up and belching. Telemetry SR with trigemonal PVCs in 70s.
--- NOTE | 2016-06-08 22:00 | NUR ---
Report given to Jeramie HENDRIX, all questions answered, bedside handoff done.
--- NOTE | 2016-06-08 22:10 | NUR ---
Assumed care and chest pain. Report was received from Toño Dias. Patient is resting comfortably in bed and reports that she is free of pain when she is sitting up. Patient was helped to the chair and patient reports no pain. Vitals stable. Nitro drip infusing at 10mcg/minute and NS at 10ml/hr.
[2016-06-09] VITALS (11 sets, daily range): BP systolic 125–153; BP diastolic 54–75; PULSE 72–85; RESP 12–24; O2SAT 93–96
[2016-06-09] MEDS: Sodium Chloride LOK Flush 10 mL Syringe IVFLUSH SCH ×8 (00:30→21:25)
[2016-06-09] MEDS: Alum-Mag Hydrox-Simeth 30 mL Suspension PO PRN (00:39)
--- NOTE | 2016-06-09 02:20 | NUR ---
Heartburn Patient is having intermittent heartburn. Patient reports that it feels like a sharp, burning sensation located in her epigastric area of her upper midline abdomen. Patient denies C/P, SOB, N/V, weakness, dizziness and fatigue. Heartburn made worse by laying down and improved by sitting in the chair. Patient was help to a seated position and orders for Carafate were received from night hospitalist. Medications administered and patient reports an improvement in symptoms.
[2016-06-09] MEDS: Sucralfate 100 mg/mL 10 mL Suspension PO SCH ×5 (02:54→21:25)
[2016-06-09] MEDS: Isosorbide Mononitrate 60 mg ER24 Tablet PO SCH (08:04)
[2016-06-09] MEDS: Pantoprazole 20 mg ER24 Tablet PO SCH (08:05)
[2016-06-09 10:58] LABS: Creatine Kinase 27 U/L (21-215)
[2016-06-09 10:59] LABS: TROPONIN T < 0.010 ug/L (0.0-0.011)
[2016-06-09] MEDS ORDERED: Levalbuterol 1.25 mg/0.5mL Inhalation Solution NEB PRN (12:30)
--- NOTE | 2016-06-09 12:51 | NUR ---
Infection Prevention Patient placed in droplet precautions due to significant paroxysmal cough. H&P indicate recent diagnosis of viral URI at Urgent Care. Dr. Vallecillo notified; he will order respiratory PCR testing. Result indicates positive RSV. Patient switched to contact isolation precautions per CDC guidelines. Nurse Tiffany Wang notified.
--- NOTE | 2016-06-09 15:56 | NUR ---
P: Chest Pain I: Pt has not c/o chest pain. NTG gtt remains at 20 mcqs/min. NSR 70's. Room air with sats stable. UP in chair and up in jacobo with PT without difficulty. Taking diet and fluids well. Frequent productive cough. Viral swab done and + RSV and doctor notified of results. NS TKO. Voiding on BSC with stand by assist. Pt states Carafate has helped a great deal. Family at bedside on and off. E:Stable S: Alert and Oriented. Uses call light appropriately. Frequent rounding.l
[2016-06-09] MEDS: Nitroglycerin 50 mg/250 mL D5W 50,000 MCG in IV Premix 1 EACH IV SCH (17:15)
--- NOTE | 2016-06-09 18:18 | PCM.PNMED ---
Subjective Date of Service Jun 09, 2016 Subjective Had chest pain all night with cough aggravating it. Plus minus dyspnea, no nausea vomiting. generally feeling poorly Exam Vital Signs Vital Sign - Last Date Time Temp Pulse Resp B/P Pulse Ox O2 Delivery O2 Flow Rate FiO2 06/09/16 16:30 36.6 72 18 135/64 95 Room Air 2.00 Intake and Output 06/08/16 06/08/16 06/09/16 Cumulative From/Thru 15:00 23:00 07:00 06/06/16 06:54 - 06/09/16 06:37 Intake Total 268 ml 600 ml 359 ml 5590 ml Output Total 500 ml 300 ml 3500 ml Balance 268 ml 100 ml 59 ml 2090 ml Intake Oral 600 ml 200 ml 2690 ml IV Total 268 ml 159 ml 2900 ml Output Urine Total 500 ml 300 ml 3500 ml # Voids 2 4 # Bowel Movements 0 0 Exam Gen.- A+ O 3 mild distress. Obese female lying in bed as a coughing fit Eyes- open conjunctiva clear, pupils equal nonicteric Mouth- oral mucosa moist, no exudate ENT- ears normal, nose normal Neck- supple/trach midline CVS- RRR no murmur or gallop, edema 1+ of the Lungs poorly moving air but no wheezes/rhonchi some crackles towards the bases GI- NABS/NT soft Musc- moving 4 no obvious deformity Neuro- cranial nerves II through XII intact to gross examination, nonfocal Skin- warm and dry, no rashes/lesions/wounds noted Psych- pleasant and appropriate, Lab and Diagnostics Result Diagram: 06/09/16 0255 06/07/16 0315 X-Rays, CTs and MRIs Chest x-ray reveals left base atelectasis versus and infiltrate 12-lead ECG Atrial fibrillation with poor R-wave progression but no ST segment changes. Assessment & Plan 85-year-old female admitted 06/06 with chest pain. Cardiac enzymes and even almost far have been negative however given her history and known lesion this is very concerning. Another hims manager is here to evaluate the patient determine whether this procedure may be attempted here or will be referred to [place]. In the meantime will add sucralfate and PPI to Pepcid which is only short acting. Chest pain-need to workup possible cardiac etiology as noted below and we will treat possible GI etiology. Another hims manager was to have her evaluated the patient today, I have not seen that this has occurred nor have I seen in note. I am going to discontinue the nitroglycerin drip tonight in hopes that the GI interventions and cough suppressants treat this patient's symptoms. Cough-whether related to pneumonia versus GERD not clear it seems to have been chronic in nature but is exacerbating chest pain we will give cough suppressant. CAD/HTN/lipid- Crescendo angina. POA. CATH 06/07 LAD lesion which is critical difficult intervention. plan was max medical DAPT, beta-blockade, long acting nitrates. pneumonia. POA. The patient is currently on a course of azithromycin and we will continue this. There is an infiltrate noted in x-ray. No fever, leukocytosis or hypoxia. No change to Bactrim plan. Atrial fibrillation, rate limitation beta-blockade. No Coumadin for now, dual antiplatelet agents only. GERD., ? Esophageal spasm as etiology question. This is chronic. Pepcid to twice a day. Tums when necessary. Adding pantoprazole and sucralfate and a when necessary GI cocktail and metoclopramide Reactive airways- bronchodilators back to when necessary 06/09 patient complains they seem to be aggravating the problem.. Prophylaxis-DVT SCD/heparin, GI on PPI/famotidine/sucralfate Disposition-full code from home Medically complex patient at high risk for complications VTE Mechanical Devices: Intermittant Pneumatic CD Resuscitation Status: CPR: Attempt Resuscitation Randy Castro MD Jun 09, 2016 18:18
[2016-06-09] MEDS ORDERED: Donnatal-Lido-Mylant 1:1:1 15 mL Syringe PO PRN (18:35)
[2016-06-09] MEDS: Pantoprazole 40 mg ER24 Tablet PO SCH (21:25)
[2016-06-10] MEDS: Codeine-guaiFENesin 10 mL Syrup PO PRN ×2 (00:53→05:28)
[2016-06-10 03:57] LABS: Mean Corpuscular Volume 88.7 fL (81-100)
[2016-06-10 04:04] VITALS: BP 143/67; PULSE 65; RESP 18; O2SAT 96
--- NOTE | 2016-06-10 04:38 | NUR ---
Pain / Cough Pt reports CP at HS of 2/10 to chest with exacerbations from coughing; pt sits to edge of bed for pain relief to express gas from upper GI tract. Pt successful in belching when sitting at EOB and reports relief from pressure. Denies CP throughout rest of shift, regularly sits to edge of bed for gas relief. Intermittent coughing throughout shift, PRN cough suppressants administered; pt reports no relief from benzonatate. Robitussin administered at approx. 0100, pt reports significant relief upon reassessment, states "that cough syrup must've really worked, because I actually got some good sleep before lab woke me up! It felt so good." No c/o dyspnea this shift. Pt ambulating to BSC with SBA, denies feeling symptomatic of pain or dizziness. VSS, tele SR 70s.
[2016-06-10 04:54] VITALS: PULSE 60
[2016-06-10 05:03] LABS: TROPONIN T 0.01 ug/L (0.0-0.011)
[2016-06-10] MEDS: Pantoprazole 40 mg ER24 Tablet PO SCH (05:28)
[2016-06-10 07:30] VITALS: BP 163/80; PULSE 74; RESP 22; O2SAT 93
[2016-06-10] MEDS: Sucralfate 100 mg/mL 10 mL Suspension PO SCH ×2 (07:41→11:44)
[2016-06-10] MEDS: Isosorbide Mononitrate 60 mg ER24 Tablet PO SCH (07:43)
[2016-06-10] MEDS: Sodium Chloride LOK Flush 10 mL Syringe IVFLUSH SCH ×2 (07:43)
[2016-06-10 08:00] VITALS: PULSE 65
--- NOTE | 2016-06-10 08:06 | PCM.PNMED ---
Subjective Date of Service Jun 10, 2016 Subjective Patient discharged please see discharge summary Exam Vital Signs Vital Sign - Last Date Time Temp Pulse Resp B/P Pulse Ox O2 Delivery O2 Flow Rate FiO2 06/10/16 07:30 36.4 74 22 163/80 93 Room Air 06/09/16 16:30 2.00 Intake and Output 06/09/16 06/09/16 06/10/16 Cumulative From/Thru 15:00 23:00 07:00 06/06/16 06:54 - 06/10/16 05:08 Intake Total 886 ml 840 ml 7316 ml Output Total 450 ml 1300 ml 5250 ml Balance 436 ml -460 ml 2066 ml Intake Oral 720 ml 840 ml 4250 ml IV Total 166 ml 3066 ml Output Urine Total 450 ml 1300 ml 5250 ml # Voids 4 # Bowel Movements 0 Lab and Diagnostics Result Diagram: 06/10/16 0340 06/10/16 0340 X-Rays, CTs and MRIs Chest x-ray reveals left base atelectasis versus and infiltrate 12-lead ECG Atrial fibrillation with poor R-wave progression but no ST segment changes. Assessment & Plan Patient discharge please see discharge summary VTE Mechanical Devices: Intermittant Pneumatic CD Resuscitation Status: CPR: Attempt Resuscitation Randy Castro MD Jun 10, 2016 08:06 have her evaluated the patient today, I have not seen that this has occurred nor have I seen in note. I am going to discontinue the nitroglycerin drip tonight in hopes that the GI interventions and cough suppressants treat this patient's symptoms. Cough-whether related to pneumonia versus GERD not clear it seems to have been chronic in nature but is exacerbating chest pain we will give cough suppressant. CAD/HTN/lipid- Crescendo angina. POA. CATH 06/07 LAD lesion which is critical difficult intervention. plan was max medical DAPT, beta-blockade, long acting nitrates. pneumonia. POA. The patient is currently on a course of azithromycin and we will continue this. There is an infiltrate noted in x-ray. No fever, leukocytosis or hypoxia. No change to Bactrim plan. Atrial fibrillation, rate limitation beta-blockade. No Coumadin for now, dual antiplatelet agents only. GERD., ? Esophageal spasm as etiology question. This is chronic. Pepcid to twice a day. Tums when necessary. Adding pantoprazole and sucralfate and a when necessary GI cocktail and metoclopramide Reactive airways- bronchodilators back to when necessary 06/09 patient complains they seem to be aggravating the problem.. Prophylaxis-DVT SCD/heparin, GI on PPI/famotidine/sucralfate Disposition-full code from home Medically complex patient at high risk for complications VTE Mechanical Devices: Intermittant Pneumatic CD Resuscitation Status: CPR: Attempt Resuscitation Randy Castro MD Jun 10, 2016 08:06
--- NOTE | 2016-06-10 10:38 | PCM.PNCARD ---
Subjective Date of service Jun 10, 2016 Chief Complaint Chest pain and shortness of breath History of Present Illness Patient has done well over the night in comparison to her other nights. She did have some CP but this was associated with belching. Her CKMB and Troponin were essentially negative yesterday morning after she experience significant CP two nights ago. My colleague Dr. Mcmanus (cardiology interventionalist) saw her to discuss about PCI vs just medical therapy, and we both agree that we should continue to with medical therapy and focus on treating her GI symptoms. I have had to restart her metoprolol due to HTN and tachycardia. She is tolerating her BB. She is awaiting for PT and thereafter we can decide if she can go home today. She was detected with RSV as well which could be causing her cough as well. Constitutional: Denies: Chills, Fever ENT: Denies: Ear Discharge, Ear Pain Eyes: Denies: Blurred Vision Cardiovascular: Reports: Chest Pain, Denies: Irregular Heart Rate, Palpitations, SOB while laying flat Respiratory: Reports: Cough, Denies: Cough with bloody sputum, Wake up Gasping for Breath, Wake up SOB Gastrointestinal: Denies: Abdominal Pain, Change in Appetite, Vomiting Genitourinary: Denies: Hematuria Musculoskeletal: Denies: Back Pain, Shoulder Pain Skin: Denies: Blisters, Lesions Neurological: Denies: Confusion Endocrine: Reports: Blood Glucose Review Exam Vital Signs Vital Sign - Last Date Time Temp Pulse Resp B/P Pulse Ox O2 Delivery O2 Flow Rate FiO2 06/10/16 08:00 65 06/10/16 07:30 36.4 22 163/80 93 Room Air 06/09/16 16:30 2.00 Intake and Output 06/09/16 06/09/16 06/10/16 Cumulative From/Thru 15:00 23:00 07:00 06/06/16 06:54 - 06/10/16 05:08 Intake Total 886 ml 840 ml 7316 ml Output Total 450 ml 1300 ml 5250 ml Balance 436 ml -460 ml 2066 ml Intake Oral 720 ml 840 ml 4250 ml IV Total 166 ml 3066 ml Output Urine Total 450 ml 1300 ml 5250 ml # Voids 4 # Bowel Movements 0 General: Pleasant Cooperative Moderately obese Skin: Warm & dry to touch Neurological: Alert & oriented No gross motor or sensory deficits Psychological: Affect & interaction appropriate Lab and Diagnostics Labs CBC Test 06/07/16 03:15 06/10/16 03:40 Neutrophils (%) (Auto) 62.7% (40-74) Lymphocytes (%) (Auto) 22.2% (14-46) Monocytes (%) (Auto) 9.0% (4-12) Eosinophils (%) (Auto) 5.7% (0-5) Basophils (%) (Auto) 0.2% (0-3) White Blood Count 7.9th/mm3 (3.8-10.1) Red Blood Count 3.73mil/mm3 (3.90-5.20) Hemoglobin 10.8g/dL (12.0-15.6) Hematocrit 33.1% (35.0-46.0) Mean Corpuscular Volume 88.7fL (81-100) Mean Corpuscular Hemoglobin 29.0pg (27.0-35.0) Mean Corpuscular Hemoglobin Concent 32.6% (32.0-37.0) Red Cell Distribution Width 13.3% (12.3-15.4) Platelet Count 247bil/L (150-400) CMP Test 06/06/16 06:45 06/06/16 08:50 06/07/16 03:15 06/08/16 04:35 Hemoglobin A1c 6.6% Total Bilirubin 0.8mg/dL Aspartate Amino Transf (AST/SGOT) 15U/L Alanine Aminotransferase (ALT/SGPT) 12U/L Alkaline Phosphatase 82U/L Total Protein 6.8g/dL Albumin 3.9g/dL Thyroid Stimulating Hormone (TSH) 0.926uIU/mL Triglycerides Level 103mg/dL Cholesterol Level 107mg/dL LDL Cholesterol, Calculated 58.400mg/dL VLDL Cholesterol 20.600mg/dL HDL Cholesterol 28mg/dL Cholesterol/HDL Ratio 3.82 Magnesium Level 2.0mg/dL Test 06/09/16 08:30 06/10/16 03:40 Total Creatine Kinase 27U/L Creatine Kinase MB 1.2ng/mL Creatine Kinase MB % % Sodium Level 142mEq/L Potassium Level 4.1mEq/L Chloride Level 103mEq/L Carbon Dioxide Level 28mmol/L Blood Urea Nitrogen 17mg/dL Creatinine 1.30mg/dL Estimat Glomerular Filtration Rate 56mL/min Glucose Level 117mg/dL Calcium Level 9.1mg/dL Troponin T 0.010ug/L Pro-B-Type Natriuretic Peptide 1387pg/mL Result Diagram: 06/10/1633906/10/16339 Assessment & Plan Problems: (1) Unstable angina Plan: Dr. Mcmanus and I both agree that this is more GI than cardiac symptoms based on her recent blood work. She is feeling better with optimization of her GI meds. If she is able to ambulate and not have significant chest pain on exertion then she may go home and follow up with me in about 3-4 weeks. Discharge cardiac medications: Plavix 75 mg once a day. ASA 81 mg once a day. Imdur 60 mg once a day Metoprolol tartrate 50 mg twice a day Amiodarone 400 mg twice a day for 5 more days then 200 mg BID for 2 weeks then 200 mg once a day for maintenance Amlodipine 10 mg once a day Furosemide 20 mg once a day Atorvastatin 40 mg once at bedtime Status: Resolved ICD Code: I20.0 (2) LAD stenosis Plan: I don't believe this is a plaque rupture causing acute coronary syndrome. She has most likely developed this lesion for many years. It appears that it is only ischemic when she has increased demand such as walking or afib with mild RVR. We will try to treat her symptoms medically. The only time we should consider mechanical intervention is if she is having persistent angina despite maximizing her medical therapy. Another anti-anginal medication we can consider is Ranexa but I would try to maximize her other traditional anti -anginal meds first before committing to a more expensive medication. Status: Chronic ICD Code: I25.10 (3) Atrial fibrillation with RVR Plan: She is on amiodarone and metoprolol. She has deferred warfarin in the past. She will be somewhat protected with Plavix and ASA. She is in SR. I believe she is at higher risk for ACS than cardioembolic stroke so we have opted to treat her critical CAD with dual antiplatelet therapy rather than ASA and NOAC. Status: Acute ICD Code: I48.91 (4) Gastroesophageal reflux disease Qualifiers: Esophagitis presence: without esophagitis Qualified Code: K21.9 - Gastro- esophageal reflux disease without esophagitis Plan: She has been treated more aggressively for her cough and GI symptoms and these are improving. Status: Chronic ICD Code: K21.9 Cardiology Plan: Catherization, Lipid assessment & treatment Pain Evaluation: Adequate Pain Control VTE Mechanical Devices: Intermittant Pneumatic CD Resuscitation Status: CPR: Attempt Resuscitation Time spent 20 minutes Gera Pritchard MD Jun 10, 2016 10:38
[2016-06-10 12:14] VITALS: BP 129/63; PULSE 57; RESP 20; O2SAT 94
[2016-06-10] MEDS ORDERED: NITR0.4T SL (12:53)
[2016-06-10] MEDS ORDERED: GUAI10LI PO (12:53)
[2016-06-10] MEDS ORDERED: MTC5T PO (12:53)
[2016-06-10] MEDS ORDERED: [UNRECOGNIZED DRUG - CODE] ORAL (12:53)
[2016-06-10] MEDS ORDERED: BENZ100C8 PO (12:53)
[2016-06-10] MEDS ORDERED: NYSTATIN PO (12:53)
[2016-06-10] MEDS ORDERED: SUCR1ORA PO (12:53)
[2016-06-10] MEDS ORDERED: HYDR-4003 PO (12:53)
[2016-06-10] MEDS ORDERED: APAP PO (12:53)
[2016-06-10] MEDS ORDERED: LIDO PO (12:53)
[2016-06-10] MEDS ORDERED: OMEP40CA36 PO (12:53)
--- NOTE | 2016-06-10 12:59 | PCM.DIMED ---
Discharge Instructions Date of Service Jun 10, 2016 Dates of Hospitalization Jun 06, 2016 at 13:22 Discharge Diagnosis Discharge Diagnosis Angina induced by atrial fibrillation with rapid ventricular response, chest pain, GERD Medication Instructions GI and cough medicines may be likely titratable. You can decrease these if you are having symptoms. Dr. Pritchard is prescribing all of the cardiac meds and will see one 2-3 weeks in the office. Please call him if there are errors and prescribing those medications. Patient Instructions Follow-up plan See primary care provider in the next week. He should have referral to gastroenterology for endoscopy so that the campus receptionist can titrate your GI meds and evaluate with going on in the esophagus. Cardiology is following, trying to manage medically as her anginal symptoms are either very difficult to palliate with intervention or not feasible. Follow-up Provider: Moncho Mcintosh MD Follow-up with PCP in: 1 week Provider: Gera Pritchard MD Follow-up in: 3 weeks Additional Information Patient needs referral to gastroenterology for endoscopy next available. Patient follow-up with Dr. Pritchard cardiology in 2-3 weeks and all cardiac meds are being prescribed by them Patient also might need follow-up for respiratory issues we will prescribe 5 days worth of Augmentin for crackles/cough and Xopenex inhaler Attending's Statement This patient likely does have an anginal component to some of her chest pains which were at this time aggravated by atrial fibrillation and acute illness. She does have a major GI component many of her symptoms were relieved once rate control was achieved and cough control and GI medications maximized. Randy Castro MD Jun 10, 2016 12:59
[2016-06-10] MEDS ORDERED: LEVA15HF5 IH (13:01)
[2016-06-10] MEDS ORDERED: AMOX-366 PO (13:01)
--- NOTE | 2016-06-10 13:41 | NUR ---
Social Work: Discharge D: Pt discussed in am rounds. Pt should be medically stable for discharge home today. signed F2F order for home health for PT and RN. Orders are finalized- to amend to include HH for discharge dispo. VAN HELPER met with pt at bedside. sw role explained. Reassessment completed with pt. Pt states she feels confident with discharge plan home. She does not feel that she needs home health but is agreeable for the time being. t/c to [facility] with [facility]. They are following and will pickle solution maker F2F. Copy on chart. A: Pt who is I and lives iwth family at home. P: Anticipate pt to discharge home today with home health through [facility]. Pt's son will transport. [facility]
--- NOTE | 2016-06-10 15:30 | PCM.DC.MED ---
Discharge Summary Date of Service Jun 10, 2016 Dates of Hospitalization Date of Hospital Admission Jun 06, 2016 at 13:22 Date of Discharge: Jun 10, 2016 Providers: Admitting Physician: Camilo Parker MD Primary Care Physician: Moncho Mcintosh MD Attending Physician: Camilo Parker MD Diagnosis at Time of Discharge Diagnosis at Time of Discharge Angina induced by atrial fibrillation with rapid ventricular response, chest pain, GERD Consultations Cardiology Dr Pritchard Procedures XRay, CTs & MRIs Chest x-ray reveals left base atelectasis versus and infiltrate ECG 12 Lead Atrial fibrillation with poor R-wave progression but no ST segment changes. Cardiac Echo Impression Interpretation Summary Left ventricular wall thickness is mildly increased. The ejection fraction is estimated to be 60-65%. There are no focal wall motion abnormalities. The right ventricle grossly appears normal in size with probable normal systolic function. The right ventricular systolic pressure is estimated at 21 mmHg assuming a right atrial pressure of 3 mm Hg. The left atrium is moderately dilated. The right atrium is mildly dilated. The ascending aorta is normal in size. There is a trivial pericardial effusion noted. Francheska 06/06 Invasive Procedures Summary 1. Critical proximal LAD stenosis with very faint collaterals from the right coronary artery. 2. Significant disease within the left circumflex artery but only involving the very distal and small vessel. 3. Elsewhere there is diffuse coronary disease but nonobstructive. 4. Mildly elevated left ventricular end-diastolic pressures. 06/06 Franc[place] Brief History 85-year-old female who presented with chest pain to the ER today. She has a history of abnormal Lexiscan several years ago. She has no clear-cut known history of CAD. She apparently was scheduled for a repeat stress test later in the week. Hospital Course 85-year-old female admitted 06/06 with chest pain. Cardiac enzymes and even almost far have been negative however given her history and known lesion this is very concerning. I met this patient 06/09 and she was on a nitro drip for her chest pain overnight but the workup was unrevealing cardiac enzymes remain negative. Patient is not felt to be good candidate for intervention. 06/10 it seemed the addition of full dose PPI, sucralfate, cough suppressants cleared up her chest pain and she was stable for discharge home. Chest pain- there is at least some cardiac etiology given the lesion that they cannot intervene with. Happily treating GI and pulmonary symptoms were controlled and we did not have to pursue the cardiac issues any further other than what was already being done. Cough-whether related to pneumonia versus GERD not clear it seems to have been chronic in nature but is exacerbating chest pain we will give cough suppressant. Patient was discharged with benzonatate and Robitussin-AC to control the cough seems to be very helpful as far. CAD/HTN/lipid- Crescendo angina. POA. CATH 06/07 LAD lesion which is critical difficult intervention. plan was max medical DAPT, beta-blockade, long acting nitrates. A. fib control is being achieved with amiodarone now cardiology to do follow-up. Medical management is the plan. pneumonia. POA. The patient is currently on a course of azithromycin and we will continue this I discharged her with a 7 day course of Augmentin and an inhaler there are bibasilar crackles. There is an infiltrate noted in x-ray. No fever, leukocytosis or hypoxia. Atrial fibrillation, rate limitation beta-blockade and amiodarone now. No Coumadin for now, dual antiplatelet agents only. Management per cardiology GERD., ? Esophageal spasm as etiology question. This is chronic. Ppi increased to 40 mg bid, adding metoclopramide, sucralfate and Tums when necessary. She should have GI follow-up as soon as possible I think an endoscopy would be in order however perhaps if her symptoms are controlled and she is maxed on medical therapy gastroenterology not be in a huge hurry to changeover operator and subject her to EGD unless cardiology clears her for the procedure. Reactive airways- bronchodilators back to when necessary 06/09 patient complains they seem to be aggravating the problem.. Discharged with Xopenex MDI. Disposition-full code from home Medically complex patient at high risk for complications Exam Vital Signs (Last) Date Time Temp Pulse Resp B/P Pulse Ox O2 Delivery O2 Flow Rate FiO2 06/10/16 12:14 36.5 57 20 129/63 94 Room Air 06/09/16 16:30 2.00 Exam Gen.- A+ O 3 Obese female sitting up in chair looking much more comfortable and rested and yesterday morning. Eyes- open conjunctiva clear, pupils equal nonicteric Mouth- oral mucosa moist, no exudate ENT- ears normal, nose normal Neck- supple/trach midline CVS- RRR no murmur or gallop, edema 1+ of the Lungs moving air better today , no wheezes/rhonchi bibasilar crackles GI- NABS/NT soft Musc- moving 4 no obvious deformity Neuro- cranial nerves II through XII intact to gross examination, nonfocal Skin- warm and dry, no rashes/lesions/wounds noted Psych- pleasant and appropriate, Test 06/06/16 06:45 06/06/16 08:50 06/06/16 21:38 06/07/16 03:15 Hemoglobin A1c 6.6% (4.8-5.6) Total Bilirubin 0.8mg/dL (0.0-1.2) Aspartate Amino Transf (AST/SGOT) 15U/L (0-50) Alanine Aminotransferase (ALT/SGPT) 12U/L (0-32) Alkaline Phosphatase 82U/L (25-165) Total Protein 6.8g/dL (6.4-8.4) Albumin 3.9g/dL (3.4-5.0) Thyroid Stimulating Hormone (TSH) 0.926uIU/mL (0.450-4.500) Urine Color Yellow (YELLOW) Urine Appearance Clear (CLEAR,HAZY) Urine pH 6.5 (5.0-8.0) Urine Specific Avinger 1.015 (1.003-1.035) Urine Protein Negativemg/dL (NEG,TRACE) Urine Glucose (UA) Negativemg/dL (NEGATIVE) Urine Ketones Negativemg/dL (NEGATIVE) Urine Occult Blood Negative (NEGATIVE) Urine Nitrite Negative (NEGATIVE) Urine Bilirubin Negative (NEGATIVE) Urine Urobilinogen Normalmg/dL (NORMAL) Urine Leukocyte Esterase Negative (NEGATIVE) Urine RBC 0-2/hpf (0-2) Urine WBC 0-5/hpf (0-5) Urine Epithelial Cells None/hpf (NONE-MOD) Urine Crystals None seen (NONE SEEN) Urine Bacteria Few/hpf (NONE-FEW) Urine Hyaline Casts None/lpf (NONE) Urine Granular Casts None seen (NONE SEEN) Urine Waxy Casts None seen (NONE SEEN) Urine Red Blood Cell Casts None seen (NONE SEEN) Urine White Blood Cell Casts None seen (NONE SEEN) Urine Mucus None seen (None Seen) Urine Trichomonas None seen (NONE SEEN) Urine Yeast None (NONE SEEN) Urinalysis Comment Amorphous sediment Urine Culture Reflexed Not indicated Neutrophils (%) (Auto) 62.7% (40-74) Lymphocytes (%) (Auto) 22.2% (14-46) Monocytes (%) (Auto) 9.0% (4-12) Eosinophils (%) (Auto) 5.7% (0-5) Basophils (%) (Auto) 0.2% (0-3) Triglycerides Level 103mg/dL (0-149) Cholesterol Level 107mg/dL (100-199) LDL Cholesterol, Calculated 58.400mg/dL (0-99) VLDL Cholesterol 20.600mg/dL HDL Cholesterol 28mg/dL (>39) Cholesterol/HDL Ratio 3.82 (0.0-4.4) Test 06/08/16 04:35 06/09/16 02:55 06/09/16 08:30 06/10/16 03:40 Magnesium Level 2.0mg/dL (1.6-2.6) Activated Partial Thromboplast Time 26.6sec (22.8-33.0) Total Creatine Kinase 27U/L (21-215) Creatine Kinase MB 1.2ng/mL (0.0-5.3) Creatine Kinase MB % % (0.0-5.0) White Blood Count 7.9th/mm3 (3.8-10.1) Red Blood Count 3.73mil/mm3 (3.90-5.20) Hemoglobin 10.8g/dL (12.0-15.6) Hematocrit 33.1% (35.0-46.0) Mean Corpuscular Volume 88.7fL (81-100) Mean Corpuscular Hemoglobin 29.0pg (27.0-35.0) Mean Corpuscular Hemoglobin Concent 32.6% (32.0-37.0) Red Cell Distribution Width 13.3% (12.3-15.4) Platelet Count 247bil/L (150-400) Sodium Level 142mEq/L (134-144) Potassium Level 4.1mEq/L (3.5-5.2) Chloride Level 103mEq/L (97-108) Carbon Dioxide Level 28mmol/L (18-29) Blood Urea Nitrogen 17mg/dL (8-27) Creatinine 1.30mg/dL (0.57-1.00) Estimat Glomerular Filtration Rate 56mL/min (>59) Glucose Level 117mg/dL (60-99) Calcium Level 9.1mg/dL (8.5-10.1) Troponin T 0.010ug/L (0.0-0.011) Pro-B-Type Natriuretic Peptide 1387pg/mL (0-738) Discharge Medications Discharge Medications Amlodipine (Amlodipine) 10 Mg Tablet 10 MG PO DAILY (Reported) Amoxicillin/Clav K 875-125 mg (Augmentin 875-125 mg) 1 Each Tablet 1 TABLET PO BID Prescribed by: KRIS TAVERAS MD Ascorbic Acid (Vitamin C) 250 Mg Tab.chew 250 MG PO DAILY (Reported) Aspirin (Aspirin) 325 Mg Tablet 325 MG PO DAILY (Reported) Atorvastatin Calcium (Atorvastatin Calcium) 40 Mg Tablet 40 MG PO HS (Reported) at bedtime Estradiol (Estrace) 42.5 Gm Cream.appl 1 APPLIC VG 2 times a week (Reported) Furosemide (Furosemide) 20 Mg Tab 20 MG PO DAILY (Reported) Isosorbide MN ER (Isosorbide MN ER) 60 Mg Tab.er.24h 60 MG PO DAILY (Reported) Metoclopramide (Metoclopramide) 5 Mg Tablet 5 MG PO ACHS Prescribed by: KRIS TAVERAS MD Metoprolol Tartrate (Metoprolol Tartrate) 50 Mg Tablet 50 MG PO BID (Reported) Multivitamin (Once Daily) 1 Each Tablet 1 EACH PO DAILY (Reported) Omeprazole (Omeprazole) 40 Mg Capsule.dr 40 MG PO BID Prescribed by: KRIS TAVERAS MD Sucralfate (Sucralfate) 1 Gm/10 Ml Oral.susp 1,000 MG PO ACHS Prescribed by: KRIS TAVERAS MD Vit C/Vit E/Lutein/Min/[place]-3 (Ocuvite Softgel) 1 Each Capsule 1 EACH PO DAILY (Reported) As needed ([Apap/Lido/Nystatin]) 15 ML/SYR SUSP 15 ML PO QID PRN PRN For Epigastric Distress Prescribed by: KRIS TAVERAS MD Albuterol HFA (Proair HFA) 8.5 Gm Hfa.aer.ad 2 PUFFS INHALATION Q4H PRN PRN For Shortness of Breath (Reported) Benzonatate (Benzonatate) 100 Mg Capsule 100 MG PO TID PRN PRN For Cough Prescribed by: KRIS TAVERAS MD Fluticasone Propionate (Fluticasone Propionate Nasal) 16 Gm [place].susp 2 SPRAY NS DAILY PRN PRN congestion (Reported) Guaifenesin/Codeine Phosphate (Guaifenesin-Codeine Syrup) 10 Ml Liquid 10 ML PO Q4H PRN PRN For Cough Prescribed by: KRIS TAVERAS MD Hydrocodone-Acetaminophen 5-325 mg (Hydrocodone-Acetaminophen 5-325 mg) 1 Each Tablet 1-2 TABLET PO Q4H PRN PRN For Moderate Pain Prescribed by: KRIS TAVERAS MD Levalbuterol Tartrate (Xopenex Hfa) 15 Gm Hfa.aer.ad 1 PUFF IH Q4 PRN PRN For Shortness of Breath Prescribed by: KRIS TAVERAS MD Lidocaine HCl (Lidocaine HCl) 20 Ml Vial 10 ML ORAL ONCE PRN PRN For Epigastric Distress Prescribed by: KRIS TAVERAS MD Nitroglycerin SL (Nitroglycerin SL) 0.4 Mg Tab.subl 0.4 MG SL PRN PRN PRN For Chest Pain (Reported) Nitroglycerin SL (Nitrostat) 0.4 Mg Tab.subl 0.4 MG SL PRN PRN PRN For Chest Pain Prescribed by: KRIS TAVERAS MD Additional med instructions GI and cough medicines may be likely titratable. You can decrease these if you are having symptoms. Dr. Pritchard is prescribing all of the cardiac meds and will see one 2-3 weeks in the office. Please call him if there are errors and prescribing those medications. Followup Plan Follow-up plan See primary care provider in the next week. He should have referral to gastroenterology for endoscopy so that the over hauler helper can titrate your GI meds and evaluate with going on in the esophagus. Cardiology is following, trying to manage medically as her anginal symptoms are either very difficult to palliate with intervention or not feasible. Follow-up Provider: Moncho Mcintosh MD Follow-up with PCP in: 1 week Provider: Gera Pritchard MD Follow-up in: 3 weeks Time spent 31 minutes Attending Statement Patient has possible cardiac component intermittently to chest pain, this is being medically managed. It would be good to get GI to weigh in on the optimal medical management and perhaps do endoscopy but it would probably be best if cardiology had cleared her for such an intervention first. Patient per her part expresses frustration being shuffled between the 2 specialists each one stating that the other would be the responsible democrat. I think they are old responsible and that cardiology should clear patient for intervention and discuss potential risks and then EGD should be performed to further evaluate what is going on with this patient's reflux as she may be having dysphagia and/ or aspiration causing the chronic cough and reflux. copies to: Gera Pritchard MD; Moncho Mcintosh MD, Andris E MD Jun 10, 2016 15:30
--- NOTE | 2016-06-10 16:45 | NUR ---
Discharge The pt left the unit at 1630 today via wheelchair. The pt left with all her belongings, and her packet of discharge info, including all new scripts. The pt verbalized understanding of all discharge teaching. The pt is being transported in a private vehicle to her home. The pt left with vitals WNL, and A&O x3.
== END 2016-06-10 17:00 | disposition home or self-care (01) | DRG 286 ==
LOC: EDUNIT# 06:45 → EDBD 06:45 → SED 06:45 → PCC 13:22 → OBSVTOIN 13:22 → PCC 06-09 21:40
PROVIDERS: ADMIT Hospitalist; ATTEND Hospitalist
PROC: 4A023N7 Measurement of Cardiac Sampling and Pressure, Left Heart, Percutaneous Approach (ICD-10-PCS; principal; 2016-06-06)
PROC: B2111ZZ Fluoroscopy of Multiple Coronary Arteries using Low Osmolar Contrast (ICD-10-PCS; 2016-06-06)
DX: I25.110 Atherosclerotic heart disease of native coronary artery with unstable angina pectoris (principal); J18.9 Pneumonia, unspecified organism; I48.0 Paroxysmal atrial fibrillation; I10 Essential (primary) hypertension; E87.6 Hypokalemia; K21.9 Gastro-esophageal reflux disease without esophagitis; M81.0 Age-related osteoporosis without current pathological fracture; Z79.82 Long term (current) use of aspirin; Z79.51 Long term (current) use of inhaled steroids